=== PATIENT | male | born 1985 | race Caucasian/White ===

== ENCOUNTER 2019-04-02 13:45 | Emergency (ER) | payer SELFPAY ==
[2019-04-02] MEDS ORDERED: Albuterol/Ipratropium 3.0-0.5 MG/3 ML Neb Soln NEB ONE (13:48)
[2019-04-02] MEDS ORDERED: methylPREDNISolone Sodium Succinate 125 MG/2 ML SDV IM ONE (13:48)
[2019-04-02] MEDS ORDERED: methylPREDNISolone Sodium Succinate 125 MG/2 ML SDV IVPUSH ONE (13:54)
--- NOTE | 2019-04-02 15:39 | EDM.PDOC ---
ED HPI GENERAL MEDICAL PROBLEM - General Chief Complaint: Respiratory Problem Stated Complaint: SOB-ASTHMA Time Seen by Provider: 04/02/19 13:48 Source of Information: Reports: Patient, Family, RN Notes Reviewed History Limitations: Reports: Respiratory Distress - History of Present Illness INITIAL COMMENTS - FREE TEXT/NARRATIVE: 33-year-old gentleman presents emergency department a complaint of shortness of breath, he has a known history of asthma moderate persistent, he states over the last 24 hours is gotten progressively worse his rescue inhalers have not provided any relief at home. He denies any fevers or nausea or vomiting is able to speak in 1 and 2 word sentences Upper Back Pain Score (Numeric/FACES): 8 - Related Data Allergies Allergy/AdvReac Type Severity Reaction Status Date / Time No Known Allergies Allergy Verified 04/02/19 14:01 Home Meds: Home Meds Albuterol Sulfate [Albuterol Sulfate HFA] 2 puff INH ASDIRECTED PRN 05/13/13 [ History] Albuterol Sulfate [Proair Hfa] 8.5 gm IH Q3HR PRN #1 hfa.aer.ad 05/13/13 [Rx] Albuterol [Proventil Neb Soln] 0.63 mg NEB Q2H PRN #25 neb 05/13/13 [Rx] Albuterol/Ipratropium [DuoNeb 3-0.5 MG/3 ML] 3 ml NEB QID PRN #20 neb 05/13/13 [ Rx] Albuterol Sulfate [Proair Hfa] 8.5 gm IH Q2H PRN #1 hfa.aer.ad 04/02/19 [Rx] Albuterol/Ipratropium [DuoNeb 3.0-0.5 MG/3 ML] 3 ml .XX Q2H PRN #90 neb [Rx] Past Medical History Respiratory History: Reports: Asthma Musculoskeletal History: Reports: Fracture Other Musculoskeletal History: leg,arm.collar bone, ankle skull fx Neurological History: Reports: Concussion Social & Family History - Tobacco Use Smoking Status *Q: Never Smoker Second Hand Smoke Exposure: No - Caffeine Use Caffeine Use: Reports: Coffee, Soda - Alcohol Use Days Per Week of Alcohol Use: 4 Number of Drinks Per Day: 4 Total Drinks Per Week: 16 - Recreational Drug Use Recreational Drug Use: Yes Recreational Drug Type: Reports: Marijuana/Hashish Recreational Drug Use Frequency: Rarely ED ROS GENERAL - Review of Systems Review Of Systems: See Below Constitutional: Denies: Fever, Chills Respiratory: Reports: Shortness of Breath, Wheezing Cardiovascular: Reports: Dyspnea on Exertion ED EXAM, GENERAL - Physical Exam Exam: See Below Exam Limited By: Respiratory Distress General Appearance: Alert, Moderate Distress Respiratory/Chest: Respiratory Distress, Decreased Breath Sounds, Wheezing Cardiovascular: Tachycardia Course - Vital Signs Last Recorded V/S: Last Vital Signs Temp 97.8 F 04/02/19 13:59 Pulse 90 04/02/19 14:58 Resp 24 H 04/02/19 14:58 BP 130/64 04/02/19 14:58 Pulse Ox 92 L 04/02/19 14:58 - Orders/Labs/Meds Orders: Active Orders 24 hr Category Date Time Status RT Aerosol Therapy [RC] ASDIRECTED Care 04/02/19 13:48 Active Meds: Medications Discontinued Medications Generic Name Dose Route Start Last Admin Trade Name Freq PRN Reason Stop Dose Admin Albuterol/Ipratropium 3 ml 04/02/19 13:48 04/02/19 13:54 Duoneb 3.0-0.5 Mg/3 Ml NEB 04/02/19 13:49 3 ml ONETIME ONE Administration Methylprednisolone Sodium Succinate 125 mg 04/02/19 13:48 Solu-Medrol IM 04/02/19 13:49 ONETIME ONE Methylprednisolone Sodium Succinate 125 mg 04/02/19 13:54 04/02/19 13:56 Solu-Medrol IVPUSH 04/02/19 13:55 125 mg ONETIME ONE Administration Departure - Departure Time of Disposition: 15:56 Disposition: Home, Self-Care 01 Condition: Good Clinical Impression: Exacerbation of asthma Qualifiers: Asthma severity: moderate Asthma persistence: persistent Qualified Code(s): J45.41 - Moderate persistent asthma with (acute) exacerbation - Discharge Information Prescriptions: Albuterol Sulfate [Proair Hfa] 8.5 gm IH Q2H PRN #1 hfa.aer.ad PRN Reason: Dyspnea Albuterol/Ipratropium [DuoNeb 3.0-0.5 MG/3 ML] 3 ml .XX Q2H PRN #90 neb PRN Reason: Dyspnea Instructions: Asthma Attack Prevention, Adult, Asthma, Adult Referrals: PCP,None [Primary Care Provider] - Forms: ED Department Discharge Additional Instructions: Take full course of prednisone, start tomorrow, use your albuterol or pro-air inhaler as needed, please followup with your primary care provider in 3-5 days if not better, please call return to the emergency department with worsening of symptoms. Sepsis Event Note - Evaluation Sepsis Screening Result: No Definite Risk - Focused Exam Vital Signs: Vital Signs Temp Pulse Resp BP Pulse Ox 04/02/19 14:58 90 24 H 130/64 92 L 04/02/19 13:59 97.8 F 128 H 16 142/84 H 96 Date Exam was Performed: 04/02/19 Time Exam was Performed: 15:53 - My Orders Last 24 Hours: My Active Orders 04/02/19 13:48 RT Aerosol Therapy [RC] ASDIRECTED - Assessment/Plan Last 24 Hours: My Active Orders 04/02/19 13:48 RT Aerosol Therapy [RC] ASDIRECTED Plan: Assessment Acuity = acute Site and laterality = moderate persistent asthma exacerbation Etiology = unknown trigger Manifestations = dyspnea now resolved Location of injury = Home Lab values = none Plan Is given a DuoNeb and Solu-Medrol while in the emergency department discharged home with DuoNeb and a pro-air inhaler long prednisone taper per his request 60 mg once a day for 10 days with a taper follow-up primary care in 3 to 5 days if no improvement medications faxed to [facility] This note was dictated using [employer] voice recognition software please call with any questions on syntax or grammar.
== END 2019-04-02 16:08 | disposition home or self-care (01) ==
LOC: JP.ED 13:45
DX: J45.41 Moderate persistent asthma with (acute) exacerbation (principal)
CPT/HCPCS: 94640; 96374; 99284; J2930; J7620-GY

== ENCOUNTER 2019-06-01 03:00 | Emergency (ER) | payer OTHER ==
[2019-06-01] MEDS ORDERED: methylPREDNISolone Sodium Succinate 125 MG/2 ML SDV IVPUSH ONE (03:12)
[2019-06-01] MEDS ORDERED: Albuterol/Ipratropium 3.0-0.5 MG/3 ML Neb Soln NEB ONE (03:12)
--- NOTE | 2019-06-01 03:29 | EDM.PDOC ---
ED HPI GENERAL MEDICAL PROBLEM - General Chief Complaint: Asthma Stated Complaint: HARD TIME BREATHING Time Seen by Provider: 06/01/19 03:10 Source of Information: Reports: Patient History Limitations: Reports: No Limitations - History of Present Illness INITIAL COMMENTS - FREE TEXT/NARRATIVE: 33-year-old male with longstanding significant recurring asthma, comes in with an exacerbation. He has diffuse expiratory wheezes but his sats are 95% and he is in no respiratory distress. Cough is nonproductive, no fever. Onset: Gradual Duration: Day(s): (Worsening for the last several days) Associated Symptoms: Reports: Cough. Denies: Fever/Chills - Related Data Allergies Allergy/AdvReac Type Severity Reaction Status Date / Time No Known Allergies Allergy Verified 06/01/19 03:17 Home Meds: Home Meds Albuterol [Proventil Neb Soln] 0.63 mg NEB Q2H PRN #25 neb 05/13/13 [Rx] Albuterol/Ipratropium [DuoNeb 3-0.5 MG/3 ML] 3 ml NEB QID PRN #20 neb 05/13/13 [ Rx] Albuterol Sulfate [Proair Hfa] 8.5 gm IH ASDIRECTED PRN 06/01/19 [History] Past Medical History Respiratory History: Reports: Asthma Musculoskeletal History: Reports: Fracture Other Musculoskeletal History: leg,arm.collar bone, ankle skull fx Neurological History: Reports: Concussion Social & Family History - Tobacco Use Smoking Status *Q: Never Smoker - Caffeine Use Caffeine Use: Reports: Coffee, Soda ED ROS GENERAL - Review of Systems Review Of Systems: See Below Constitutional: Denies: Fever, Chills Respiratory: Reports: Shortness of Breath, Wheezing, Cough. Denies: Sputum Cardiovascular: Denies: Chest Pain GI/Abdominal: Denies: Nausea, Vomiting Neurological: Denies: Headache ED EXAM, GENERAL - Physical Exam Exam: See Below Exam Limited By: No Limitations General Appearance: Alert, No Apparent Distress, Anxious, Other (Anxious and uncomfortable but not in any acute distress) Head: Atraumatic Respiratory/Chest: No Respiratory Distress, Wheezing (Diffuse expiratory wheezes are heard) Cardiovascular: Regular Rate, Rhythm Neurological: Alert, Oriented Skin Exam: Warm, Dry Course - Vital Signs Last Recorded V/S: Last Vital Signs Temp 98.0 F 06/01/19 03:25 Pulse 101 H 04/15/20 03:25 Resp 24 H 06/01/19 03:25 BP 142/68 H 06/01/19 03:25 Pulse Ox 96 06/01/19 03:25 - Orders/Labs/Meds Orders: Active Orders 24 hr Category Date Time Status RT Aerosol Therapy [RC] ASDIRECTED Care 06/01/19 03:12 Active Meds: Medications Discontinued Medications Generic Name Dose Route Start Last Admin Trade Name Isabel PRN Reason Stop Dose Admin Albuterol/Ipratropium 3 ml 06/01/19 03:12 06/01/19 03:22 Duoneb 3.0-0.5 Mg/3 Ml NEB 06/01/19 03:13 3 ml ONETIME ONE Administration Methylprednisolone Sodium Succinate 125 mg 06/01/19 03:12 06/01/19 03:33 Solu-Medrol IVPUSH 06/01/19 03:13 125 mg ONETIME ONE Administration - Re-Assessments/Exams Free Text/Narrative Re-Assessment/Exam: 06/01/19 03:27 Patient was given a DuoNeb, and IV started and patient was given 125 mg of IV Solu-Medrol. He was also given 60 10 mg doses of prednisone to start tomorrow morning with a dose of 60 mg and taper over 10 days. He also requested a prescription for pro-air HFA which seems to work better than the Ventolin brand. This was provided. He is encouraged to return if worsening despite treatment. Departure - Departure Time of Disposition: 03:54 Disposition: Home, Self-Care 01 Clinical Impression: Asthma with exacerbation Qualifiers: Asthma severity: moderate Asthma persistence: persistent Qualified Code(s): J45.41 - Moderate persistent asthma with (acute) exacerbation - Discharge Information Instructions: Asthma, Adult Referrals: PCP,None [Primary Care Provider] - Forms: ED Department Discharge Care Plan Goals: Take 60 mg of prednisone for the next 2 to 3 days then taper over 10 days. Use inhaler as needed until improved, and return anytime if not improving satisfactorily. Sepsis Event Note - Focused Exam Vital Signs: Vital Signs Temp Pulse Resp BP Pulse Ox 06/01/19 03:25 98.0 F 101 H 24 H 142/68 H 96 06/01/19 03:24 98.0 F 101 H 24 H 142/68 H 96 Date Exam was Performed: 06/01/19 Time Exam was Performed: 03:58 - My Orders Last 24 Hours: My Active Orders 06/01/19 03:12 RT Aerosol Therapy [RC] ASDIRECTED - Assessment/Plan Last 24 Hours: My Active Orders 06/01/19 03:12 RT Aerosol Therapy [RC] ASDIRECTED
== END 2019-06-01 03:55 | disposition home or self-care (01) ==
LOC: JP.ED 03:00
DX: J45.41 Moderate persistent asthma with (acute) exacerbation (principal)
CPT/HCPCS: 94640; 96374; 99284; J2930; J7620-GY

== ENCOUNTER 2019-11-02 20:30 | Emergency (ER) | payer MEDICAID ==
[2019-11-02] MEDS ORDERED: Dexamethasone 4 MG/ML SDV PO ONE (21:10)
--- NOTE | 2019-11-02 21:17 | EDM.PDOC ---
ED HPI GENERAL MEDICAL PROBLEM - General Chief Complaint: Asthma Stated Complaint: Feels like there is something in my throat making it difficult to breathe Time Seen by Provider: 11/02/19 21:03 Source of Information: Reports: Patient History Limitations: Reports: No Limitations - History of Present Illness INITIAL COMMENTS - FREE TEXT/NARRATIVE: 33-year-old male with history of asthma presents with a sensation of something in his throat making it difficult to breathe. It has developed over the past 48 hours. He has noticed it while driving his tractor and while laying in bed. He denies any cough, fever, nausea, vomiting. He takes acid reflux medications and is compliant. He denies any increased heartburn or acid reflux. He denies any wheezing. He reports no sinus congestion or pressure. Denies other symptoms or concerns at this time. Presents to emergency room as he felt the symptoms could be developing asthma and he wanted to get control early. Back Pain Score (Numeric/FACES): 7 - Related Data Allergies Allergy/AdvReac Type Severity Reaction Status Date / Time No Known Allergies Allergy Verified 06/01/19 03:17 Home Meds: Home Meds Albuterol [Proventil Neb Soln] 0.63 mg NEB Q2H PRN #25 neb 05/13/13 [Rx] Albuterol/Ipratropium [DuoNeb 3-0.5 MG/3 ML] 3 ml NEB QID PRN #20 neb 05/13/13 [Rx] Albuterol Sulfate [Proair Hfa] 8.5 gm IH ASDIRECTED PRN 06/01/19 [History] Budesonide [Pulmicort] 1 ampule INH BID 11/02/19 [History] Fluticasone Propion/Salmeterol [Wixela 500-50 Inhub] 1 puff INH BID 11/02/19 [History] Past Medical History Respiratory History: Reports: Asthma Musculoskeletal History: Reports: Fracture Other Musculoskeletal History: leg,arm.collar bone, ankle skull fx Neurological History: Reports: Concussion, Head Trauma Endocrine/Metabolic History: Reports: Obesity/BMI 30+ Social & Family History - Tobacco Use Smoking Status *Q: Never Smoker - Caffeine Use Caffeine Use: Reports: Soda - Recreational Drug Use Recreational Drug Use: No ED ROS GENERAL - Review of Systems Review Of Systems: Comprehensive ROS is negative, except as noted in HPI. ED EXAM, GENERAL - Physical Exam Exam: See Below Exam Limited By: No Limitations General Appearance: Alert, WD/WN, No Apparent Distress Throat/Mouth: Normal Inspection, Dysphagia, Inflammation (Postnasal drainage. Uvula midline. No trismus.), Other Head: Atraumatic, Normocephalic Neck: Normal Inspection, Supple, Non-Tender, Full Range of Motion Respiratory/Chest: No Respiratory Distress, Lungs Clear, Normal Breath Sounds, No Accessory Muscle Use, Chest Non-Tender, Other (No hypoxia.) Cardiovascular: Normal Peripheral Pulses, Regular Rate, Rhythm, No Edema GI/Abdominal: Soft, Non-Tender, No Distention Extremities: Normal Inspection, Normal Range of Motion, Non-Tender, Normal Capillary Refill, No Pedal Edema Neurological: Alert, Oriented, Normal Gait, No Motor/Sensory Deficits Skin Exam: Warm, Dry, Intact Lymphatic: No Adenopathy Course - Vital Signs Last Recorded V/S: Last Vital Signs Temp 96.5 F L 11/02/19 20:48 Pulse 87 11/02/19 20:48 Resp 16 11/02/19 20:48 BP 156/86 H 11/02/19 20:48 Pulse Ox 96 11/02/19 20:48 - Orders/Labs/Meds Orders: Active Orders 24 hr Category Date Time Status dexAMETHasone [Dexamethasone] Med 11/02/19 21:10 Once 10 mg PO ONETIME ONE Departure - Departure Time of Disposition: 21:10 Disposition: Home, Self-Care 01 Condition: Good Clinical Impression: Post-nasal drainage - Discharge Information Instructions: Postnasal Drip Referrals: Reno Oneil MD [Primary Care Provider] - Additional Instructions: 1. Continue use of your reflux medications. 2. Use your rescue inhaler as needed. 3. Consider [id number] decongestant use. 4. Follow-up with your primary care doctor in clinic within 5 to 10 days if not improving. 5. Seek immediate medical attention with any rapidly worsening symptoms or concerns. Sepsis Event Note (ED) - Evaluation Sepsis Screening Result: No Definite Risk - Focused Exam Vital Signs: Vital Signs Temp Pulse Resp BP Pulse Ox 11/02/19 20:48 96.5 F L 87 16 156/86 H 96 11/02/19 20:40 96.5 F L 87 16 156/86 H 96 - My Orders Last 24 Hours: My Active Orders 11/02/19 21:10 dexAMETHasone [Dexamethasone] 10 mg PO ONETIME ONE - Assessment/Plan Last 24 Hours: My Active Orders 11/02/19 21:10 dexAMETHasone [Dexamethasone] 10 mg PO ONETIME ONE Assessment:: 33-year-old male with reported history of asthma endorses 2 days of a sensation in his throat that there is like he has a lot of phlegm there and makes it difficult to breathe. He noticed an episode earlier today while driving his tractor and thought he should get looked at this afternoon as it may be progressing to asthma. He denies any wheezing, fever, cough or other symptoms. He takes acid reflux medications as directed. Clinical evaluation demonstrates signs and symptoms of postnasal drip and associated inflammation which is likely what the patient is experiencing. Clinical examination does not reveal any evidence of airway compromise such as wheezing or hypoxia. There is no evidence of acute asthma exacerbation. Decadron was administered for pharyngeal inflammation to help improve symptoms. Strep throat is not suspected at this time. Advised patient to get adequate hydration. Recommend continued use of his acid reflux medications as directed. No evidence of acute bronchospasm at this time. Advised to follow-up with his primary care doctor in 5 to 10 days if symptoms are not improving and to seek immediate medical attention with any rapidly worsening symptoms or concerns. Plan: 1. Continue to take your medications as directed by your primary care doctor. No new medications at this time. Decadron was administered in the emergency department setting to decrease inflammation observed in your throat. 2. Follow-up with your primary care doctor in 5 to 10 days if symptoms or not improving. 3. Seek immediate medical attention with any rapidly worsening symptoms or concerns.
== END 2019-11-02 21:46 | disposition home or self-care (01) ==
LOC: JP.ED 20:30
DX: R09.82 Postnasal drip (principal); J45.909 Unspecified asthma, uncomplicated; E66.9 Obesity, unspecified; Z68.41 Body mass index [BMI] 40.0-44.9, adult
CPT/HCPCS: 99283; J1100; 99282

== ENCOUNTER 2020-01-19 12:58 | Emergency (ER) | payer MEDICAID ==
[2020-01-19] MEDS ORDERED: Albuterol/Ipratropium 3.0-0.5 MG/3 ML Neb Soln NEB ONE (13:19)
--- NOTE | 2020-01-19 13:27 | EDM.PDOC ---
ED HPI GENERAL MEDICAL PROBLEM - General Chief Complaint: Respiratory Problem Stated Complaint: BREATHING PROBLEMS Time Seen by Provider: 01/19/20 13:15 Source of Information: Reports: Patient, Old Records, RN History Limitations: Reports: No Limitations - History of Present Illness INITIAL COMMENTS - FREE TEXT/NARRATIVE: 34 yo male here with worsening of his asthma over the past couple of days. No fever. Did have Covid about a month ago and has tested negative since then. Ran out of his Duonebs and is requesting one on arrival in the ER. Onset: Gradual Onset Date: 01/16/20 Duration: Day(s):, Getting Worse Location: Reports: Chest Quality: Reports: Other (mild tightness) Severity: Mild Improves with: Reports: Rest Worsens with: Reports: Breathing (deep breathing), Movement (exertion) Context: Reports: Other (Hx of asthma) Associated Symptoms: Reports: Cough, Shortness of Breath. 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 (see below) (usual meds minus his Duonebs only) Back Pain Score (Numeric/FACES): 6 - Related Data Allergies Allergy/AdvReac Type Severity Reaction Status Date / Time No Known Allergies Allergy Verified 01/19/20 13:12 Home Meds: Home Meds Albuterol [Proventil Neb Soln] 0.63 mg NEB Q2H PRN #25 neb 05/13/13 [Rx] Albuterol/Ipratropium [DuoNeb 3-0.5 MG/3 ML] 3 ml NEB QID PRN #20 neb 05/13/13 [Rx] Albuterol Sulfate [Proair Hfa] 8.5 gm IH ASDIRECTED PRN 06/01/19 [History] Budesonide [Pulmicort] 1 ampule INH BID 11/02/19 [History] Albuterol Sulfate [Proair Hfa] 8.5 gm IH Q4H PRN #1 hfa.aer.ad 01/19/20 [Rx] Albuterol/Ipratropium [DuoNeb 3.0-0.5 MG/3 ML] 3 ml IH QID PRN #100 neb 01/19/20 [Rx] Amoxicillin/Clavulanate K [Augmentin 875-125 MG] 1 tab PO BID 12/03/20 [History] Fluticasone/Vilanterol [Breo Ellipta 100-25 MCG Inhalation Kit] 200 each IH DAILY 01/19/20 [History] predniSONE [Prednisone] 20 mg PO BID #15 tablet 01/19/20 [Rx] Past Medical History Respiratory History: Reports: Asthma Musculoskeletal History: Reports: Fracture Other Musculoskeletal History: leg,arm.collar bone, ankle skull fx Neurological History: Reports: Concussion, Head Trauma Endocrine/Metabolic History: Reports: Obesity/BMI 30+ - Infectious Disease History Infectious Disease History: Reports: C-Difficile Social & Family History - Tobacco Use Years of Tobacco use: 0 - Caffeine Use Caffeine Use: Reports: Soda - Recreational Drug Use Recreational Drug Use: No ED ROS GENERAL - Review of Systems Review Of Systems: See Below Constitutional: Reports: No Symptoms HEENT: Reports: No Symptoms Respiratory: Reports: Shortness of Breath, Wheezing, Cough. Denies: Pleuritic Chest Pain, Sputum, Hemoptysis Cardiovascular: Reports: No Symptoms GI/Abdominal: Reports: No Symptoms Skin: Reports: No Symptoms Neurological: Reports: No Symptoms ED EXAM, GENERAL - Physical Exam Exam: See Below Exam Limited By: No Limitations General Appearance: Alert, WD/WN, Mild Distress Eye Exam: Bilateral Eye: Normal Inspection Ears: Normal External Exam, Normal Canal, Hearing Grossly Normal Ear Exam: Bilateral Ear: Auricle Normal, Canal Normal Nose: Normal Inspection, No Blood Throat/Mouth: Normal Inspection, Normal Lips, Normal Oropharynx, Normal Voice, No Airway Compromise Head: Atraumatic, Normocephalic Neck: Normal Inspection Respiratory/Chest: No Respiratory Distress, Chest Non-Tender, Wheezing, Other (mild tachypnea) Cardiovascular: Regular Rate, Rhythm, No Edema Extremities: Normal Inspection Neurological: Alert, Oriented, CN II-XII Intact, Normal Cognition, No Motor/Sensory Deficits Psychiatric: Normal Affect, Normal Mood Skin Exam: Warm, Dry, Intact, Normal Color, No Rash Course - Vital Signs Last Recorded V/S: Last Vital Signs Temp 36.4 C 01/19/20 13:09 Pulse 87 01/19/20 13:09 Resp 20 01/19/20 13:09 BP 109/75 01/19/20 13:09 Pulse Ox 97 01/19/20 13:09 - Orders/Labs/Meds Orders: Active Orders 24 hr Category Date Time Status RT Aerosol Therapy [RC] ASDIRECTED Care 01/19/20 13:19 Active Meds: Medications Discontinued Medications Generic Name Dose Route Start Last Admin Trade Name Freq PRN Reason Stop Dose Admin Albuterol/Ipratropium 3 ml 01/19/20 13:19 01/19/20 13:23 Duoneb 3.0-0.5 Mg/3 Ml NEB 01/19/20 13:20 3 ml ONETIME ONE Administration - Re-Assessments/Exams Free Text/Narrative Re-Assessment/Exam: 01/19/20 13:44 Moving more air, less wheezing after neb. Departure - Departure Time of Disposition: 13:50 Disposition: Home, Self-Care 01 Condition: Fair Clinical Impression: Bronchospasm, acute - Discharge Information *PRESCRIPTION DRUG MONITORING PROGRAM REVIEWED*: Not Applicable *COPY OF PRESCRIPTION DRUG MONITORING REPORT IN PATIENT [place]ONNIE: Not Applicable Prescriptions: Albuterol/Ipratropium [DuoNeb 3.0-0.5 MG/3 ML] 3 ml IH QID PRN #100 neb PRN Reason: Wheezing predniSONE [Prednisone] 20 mg PO BID #15 tablet Albuterol Sulfate [Proair Hfa] 8.5 gm IH Q4H PRN #1 hfa.aer.ad PRN Reason: Wheezing Referrals: PCP,None [Primary Care Provider] - Forms: ED Department Discharge Additional Instructions: Use prednisone as directed and your other medications as before. See your doctor next week as scheduled. Return as needed. Sepsis Event Note (ED) - Evaluation Sepsis Screening Result: No Definite Risk - Focused Exam Vital Signs: Vital Signs Temp Pulse Resp BP Pulse Ox 01/19/20 13:09 36.4 C 87 20 109/75 97 - My Orders Last 24 Hours: My Active Orders 01/19/20 13:19 RT Aerosol Therapy [RC] ASDIRECTED - Assessment/Plan Last 24 Hours: My Active Orders 01/19/20 13:19 RT Aerosol Therapy [RC] ASDIRECTED
== END 2020-01-19 13:55 | disposition home or self-care (01) ==
LOC: JP.ED 12:58
DX: J98.01 Acute bronchospasm (principal); E66.9 Obesity, unspecified; Z68.39 Body mass index [BMI] 39.0-39.9, adult; Z79.899 Other long term (current) drug therapy
CPT/HCPCS: 94640; 99283-25; J7620-GY

== ENCOUNTER 2020-04-13 23:18 | Emergency (ER) | payer MEDICAID ==
[2020-04-13] MEDS ORDERED: Albuterol/Ipratropium 3.0-0.5 MG/3 ML Neb Soln NEB PRN (23:40)
[2020-04-13] MEDS ORDERED: methylPREDNISolone Sodium Succinate 125 MG/2 ML SDV IVPUSH ONE (23:40)
[2020-04-13] MEDS ORDERED: Sodium Chloride 0.9% 10 ML Syringe FLUSH PRN (23:41)
--- NOTE | 2020-04-13 23:47 | EDM.PDOC ---
ED HPI GENERAL MEDICAL PROBLEM - General Chief Complaint: Respiratory Problem Stated Complaint: TROUBLE BREATHING Time Seen by Provider: 04/13/20 23:40 Source of Information: Reports: Patient History Limitations: Reports: No Limitations - History of Present Illness INITIAL COMMENTS - FREE TEXT/NARRATIVE: Phuc is a 34-year-old male presenting to the ED for evaluation of increased shortness of breath and wheezing over the course of the last 2 to 3 days. Patient reports he has had a cough that is productive of clear to white sputum. He has been using his typical asthma medications but despite this his symptoms have been worsening. He reports that it has been sometime since his last course of prednisone. He denies any fever or chills. He does report chest pain from the retrosternal area to the right lateral chest. He has been coughing and may have "pulled a rib". Denies any trauma. - Related Data Allergies Allergy/AdvReac Type Severity Reaction Status Date / Time No Known Allergies Allergy Verified 04/13/20 23:24 Home Meds: Home Meds Albuterol [Proventil Neb Soln] 0.63 mg NEB Q2H PRN #25 neb 05/13/13 [Rx] Albuterol/Ipratropium [DuoNeb 3-0.5 MG/3 ML] 3 ml NEB QID PRN #20 neb 05/13/13 [Rx] Budesonide [Pulmicort] 1 ampule INH BID 11/02/19 [History] Albuterol Sulfate [Proair Hfa] 8.5 gm IH Q4H PRN #1 hfa.aer.ad 01/19/20 [Rx] Fluticasone/Vilanterol [Breo Ellipta 100-25 MCG Inhalation Kit] 200 each IH DAILY 01/19/20 [History] Albuterol/Ipratropium [DuoNeb 3.0-0.5 MG/3 ML] 3 ml .XX Q3HR PRN #90 neb 04/14/20 [Rx] predniSONE [Prednisone] 60 mg PO DAILY 5 Days #15 tablet 04/14/20 [Rx] Past Medical History HEENT History: Reports: Allergic Rhinitis Respiratory History: Reports: Asthma Gastrointestinal History: Reports: GERD Musculoskeletal History: Reports: Fracture Other Musculoskeletal History: leg,arm.collar bone, ankle skull fx Neurological History: Reports: Concussion, Head Trauma Endocrine/Metabolic History: Reports: Obesity/BMI 30+ Oncologic (Cancer) History: Reports: Other (See Below) Other Oncologic History: testicular - Infectious Disease History Infectious Disease History: Reports: Chicken Pox, Novel Coronavirus - Past Surgical History Male Surgical History: Reports: Other (See Below) Other Male Surgeries/Procedures: testicular cancer with radiation seeds Social & Family History - Tobacco Use Tobacco Use Status *Q: Never Tobacco User - Caffeine Use Caffeine Use: Reports: Soda - Recreational Drug Use Recreational Drug Use: Yes Recreational Drug Type: Reports: Marijuana/Hashish Recreational Drug Use Frequency: Daily Recreational Drug Last Use: two days ago ED ROS GENERAL - Review of Systems Review Of Systems: See Below Constitutional: Reports: No Symptoms HEENT: Reports: No Symptoms Respiratory: Reports: Shortness of Breath, Wheezing, Pleuritic Chest Pain Cardiovascular: Reports: Chest Pain Endocrine: Reports: No Symptoms GI/Abdominal: Reports: No Symptoms : Reports: No Symptoms Musculoskeletal: Reports: No Symptoms Skin: Reports: No Symptoms Neurological: Reports: No Symptoms Psychiatric: Reports: No Symptoms Hematologic/Lymphatic: Reports: No Symptoms Immunologic: Reports: No Symptoms ED EXAM, GENERAL - Physical Exam Exam: See Below Exam Limited By: No Limitations General Appearance: Alert, Anxious, Moderate Distress Eye Exam: Bilateral Eye: EOMI, PERRL Nose: Normal Inspection Throat/Mouth: Normal Inspection Head: Atraumatic, Normocephalic Neck: Normal Inspection, Supple, Non-Tender Respiratory/Chest: Respiratory Distress (Mild with tachypnea), Wheezing, Accessory Muscle Use, Retractions Cardiovascular: Normal Peripheral Pulses, Regular Rate, Rhythm, No Murmur Peripheral Pulses: 2+: Radial (L), Radial (R) GI/Abdominal: Normal Bowel Sounds, Soft, Non-Tender Back Exam: Normal Inspection Extremities: Normal Inspection Neurological: Alert, Oriented, Normal Cognition, No Motor/Sensory Deficits Psychiatric: Anxious Skin Exam: Warm, Dry, Intact, Normal Color Lymphatic: No Adenopathy Course - Vital Signs Last Recorded V/S: Last Vital Signs Temp 36.5 C 04/13/20 23:29 Pulse 115 H 04/13/20 23:29 Resp 30 H 04/13/20 23:29 BP 140/83 04/13/20 23:29 Pulse Ox 93 L 04/13/20 23:29 - Orders/Labs/Meds Orders: Active Orders 24 hr Category Date Time Status RT Aerosol Therapy [RC] ASDIRECTED Care 04/13/20 23:40 Active Chest 2V [CR] Stat Exams 04/13/20 23:41 Ordered C-REACTIVE PROTEIN [CHEM] Stat Lab 04/13/20 23:56 Received COMPREHENSIVE METABOLIC PN,CMP [CHEM] Stat Lab 04/13/20 23:56 Received Albuterol/Ipratropium [DuoNeb 3.0-0.5 MG/3 ML] Med 04/13/20 23:40 Active 3 ml NEB Q2H PRN Sodium Chloride 0.9% [Saline Flush] Med 04/13/20 23:41 Active 10 ml FLUSH ASDIRECTED PRN Saline Lock Insert [OM.PC] Routine Oth 04/13/20 23:41 Ordered Medication Orders Albuterol/Ipratropium (Duoneb 3.0-0.5 Mg/3 Ml) 3 ml NEB Q2H PRN PRN Reason: Dyspnea Last Admin: 04/13/20 23:54 Dose: 3 ml Documented by: ELIZABETH Sodium Chloride (Saline Flush) 10 ml FLUSH ASDIRECTED PRN PRN Reason: Keep Vein Open Last Admin: 04/13/20 23:54 Dose: 10 ml Documented by: ELIZABETH Labs: Laboratory Tests 04/13/20 04/13/20 Range/Units 23:56 23:56 WBC 15.2 H (4.5-11.0) K/uL RBC 5.26 (4.30-5.90) M/uL Hgb 14.4 (12.0-15.0) g/dL Hct 43.2 (40.0-54.0) % MCV 82 (80-98) fL MCH 27 (27-31) pg MCHC 33 (32-36) % Plt Count 350 (150-400) K/uL Neut % (Auto) 61 (36-66) % Lymph % (Auto) 26 (24-44) % Meigs % (Auto) 7 H (2-6) % Eos % (Auto) 6 H (2-4) % Baso % (Auto) 0 (0-1) % Lactic Acid 1.4 (0.4-2.0) mmol/L Meds: Medications Generic Name Dose Route Start Last Admin Trade Name Freq PRN Reason Stop Dose Admin Albuterol/Ipratropium 3 ml 04/13/20 23:40 04/13/20 23:54 Duoneb 3.0-0.5 Mg/3 Ml NEB 3 ml Q2H PRN Administration Dyspnea Sodium Chloride 10 ml 04/13/20 23:41 04/13/20 23:54 Saline Flush FLUSH 10 ml ASDIRECTED PRN Administration Keep Vein Open Discontinued Medications Generic Name Dose Route Start Last Admin Trade Name Isabel PRN Reason Stop Dose Admin Methylprednisolone Sodium Succinate 125 mg 04/13/20 23:40 04/13/20 23:54 Solu-Medrol IVPUSH 04/13/20 23:41 125 mg ONETIME ONE Administration - Radiology Interpretation Free Text/Narrative:: I reviewed the two-view chest x-ray. There is no evidence for any acute infiltrates or perihilar adenopathy. No changes in the chest x-ray when compared to the previous done in January 2020. - Re-Assessments/Exams Free Text/Narrative Re-Assessment/Exam: 04/13/20 23:45 Phuc presents with an acute exacerbation of asthma with audible wheezing, accessory muscle use, and tachypnea spite using his home medications. We initiated bronchodilation with a DuoNeb as well as the patient received Solu-Medrol 125 mg IV. Labs were obtained including CBC, CRP, comprehensive metabolic panel, and lactic acid as he prescreens as possible sepsis. A chest x-ray was also obtained to evaluate for possible infection like bronchitis or pneumonia. 04/14/20 00:22 I reviewed the patient's labs including CBC, comprehensive metabolic panel, and lactic acid. The CBC shows a leukocytosis but predominantly has elevation of the monocytes and eosinophils consistent with an acute asthma exacerbation. There is no significant left shift to suggest a bacterial infection. The venous lactic acid is normal at 1.4. There is no suggestion of acute sepsis. The comprehensive metabolic panel shows shows a slightly high anion gap of 16.8 but otherwise is unremarkable. The C-reactive protein is mildly elevated at 1.31. 04/14/20 00:29 overall, it appears that this is an acute exacerbation of asthma. It appears that he had his last exacerbation where he was seen in the ED on 01/21/2020. My plan is to discharge him home with a new prescription for DuoNeb 90 ampoules and prednisone 60 mg daily for 5 days. I have printed prescriptions for both that the patient can fill in the pharmacy in the morning. Unfortunately, it does not appear that DuoNeb's are available in the [facility] med machine anymore to send him out with a smaller quantity for overnight. The patient does still have 1 ampoule at home should he need it after discharge before picking up the new prescription. Indications to return to the ED were discussed. There are no indications that warrant the use of antibiotics at this time. All questions were answered prior to the patient being discharged in satisfactory condition. Departure - Departure Time of Disposition: 00:31 Disposition: Home, Self-Care 01 Condition: Fair Clinical Impression: Acute asthma - Discharge Information *PRESCRIPTION DRUG MONITORING PROGRAM REVIEWED*: Not Applicable *COPY OF PRESCRIPTION DRUG MONITORING REPORT IN PATIENT BONNIE: Not Applicable Prescriptions: Albuterol/Ipratropium [DuoNeb 3.0-0.5 MG/3 ML] 3 ml .XX Q3HR PRN #90 neb PRN Reason: Dyspnea predniSONE [Prednisone] 60 mg PO DAILY 5 Days #15 tablet Instructions: Asthma, Adult, [id number], Asthma Attack Prevention, Adult Referrals: Javier Dooley MD [Primary Care Provider] - Forms: ED Department Discharge Care Plan Goals: My plan is to put you on prednisone 60 mg daily for 5 days. This should help calm down the inflammation occurring in your larger airways that are causing your shortness of breath and wheezing. In addition we will also do a prescription for DuoNebs as he is down to his last ampule. Sepsis Event Note (ED) - Evaluation Sepsis Screening Result: Possible Sepsis Risk - Focused Exam Vital Signs: Vital Signs Temp Pulse Resp BP Pulse Ox 04/13/20 23:29 36.5 C 115 H 30 H 140/83 93 L 04/13/20 23:28 36.5 C 115 H 30 H 140/83 93 L - Problem List & Annotations (1) Acute asthma SNOMED Code(s): 994106312 Code(s): J45.909 - UNSPECIFIED ASTHMA, UNCOMPLICATED Status: Acute Priority: High Current Visit: Yes - Problem List Review Problem List Initiated/Reviewed/Updated: Yes - My Orders Last 24 Hours: My Active Orders 04/13/20 23:40 RT Aerosol Therapy [RC] ASDIRECTED Albuterol/Ipratropium [DuoNeb 3.0-0.5 MG/3 ML] 3 ml NEB Q2H PRN 04/13/20 23:41 Chest 2V [CR] Stat Sodium Chloride 0.9% [Saline Flush] 10 ml FLUSH ASDIRECTED PRN Saline Lock Insert [OM.PC] Routine 04/13/20 23:56 C-REACTIVE PROTEIN [CHEM] Stat COMPREHENSIVE METABOLIC PN,CMP [CHEM] Stat - Assessment/Plan Last 24 Hours: My Active Orders 04/13/20 23:40 RT Aerosol Therapy [RC] ASDIRECTED Albuterol/Ipratropium [DuoNeb 3.0-0.5 MG/3 ML] 3 ml NEB Q2H PRN 04/13/20 23:41 Chest 2V [CR] Stat Sodium Chloride 0.9% [Saline Flush] 10 ml FLUSH ASDIRECTED PRN Saline Lock Insert [OM.PC] Routine 04/13/20 23:56 C-REACTIVE PROTEIN [CHEM] Stat COMPREHENSIVE METABOLIC PN,CMP [CHEM] Stat
--- NOTE | 2020-04-16 09:13 | CR ---
CHEST: 2 view CLINICAL HISTORY:Dyspnea and wheezing COMPARISON:2014 FINDINGS: The heart size, pulmonary vascularity and hilar structures are normal. No infiltrate effusion or pneumothorax is seen. IMPRESSION: No acute cardiopulmonary process.
== END 2020-04-14 00:42 | disposition home or self-care (01) ==
LOC: JP.ED 23:18
DX: J45.909 Unspecified asthma, uncomplicated (principal); R79.82 Elevated C-reactive protein (CRP); E66.9 Obesity, unspecified; Z68.38 Body mass index [BMI] 38.0-38.9, adult; Z79.899 Other long term (current) drug therapy
CPT/HCPCS: 36415; 71046; 80053; 83605; 85025; 86140; 94640; 96374; 99284; 99285; J2930; J7620-GY

== ENCOUNTER 2020-07-27 06:22 | Emergency (ER) | payer MEDICAID ==
--- NOTE | 2020-07-27 07:27 | EDM.PDOC ---
ED HPI GENERAL MEDICAL PROBLEM - General Chief Complaint: ENT Problem Stated Complaint: SWOLLEN TONSILS AND SOB ASTHMA Time Seen by Provider: 07/27/20 07:05 Source of Information: Reports: Patient History Limitations: Reports: No Limitations - History of Present Illness INITIAL COMMENTS - FREE TEXT/NARRATIVE: 34-year-old male with a history of asthma, developed a sore throat over the past 24 to 48 hours. No fevers or chills but he has tender lymphadenopathy and also has developed a runny nose. He thinks they may be unrelated as he has some allergy issues as well. No nausea or vomiting, no exposure to illness he knows of. He was diagnosed with Covid in December. Denies a headache. Onset: Sudden (Symptoms started fairly suddenly within the last 48 hours) Location: Reports: Other (Throat and neck) Worsens with: Reports: Other (Swallowing is difficult) - Related Data Allergies Allergy/AdvReac Type Severity Reaction Status Date / Time No Known Allergies Allergy Verified 07/27/20 06:41 Home Meds: Home Meds Albuterol [Proventil Neb Soln] 0.63 mg NEB Q2H PRN #25 neb 05/13/13 [Rx] Albuterol/Ipratropium [DuoNeb 3-0.5 MG/3 ML] 3 ml NEB QID PRN #20 neb 05/13/13 [Rx] Budesonide [Pulmicort] 1 ampule INH BID 11/02/19 [History] Albuterol Sulfate [Proair Hfa] 8.5 gm IH Q4H PRN #1 hfa.aer.ad 01/19/20 [Rx] Fluticasone/Vilanterol [Breo Ellipta 100-25 MCG Inhalation Kit] 200 each IH DAILY 01/19/20 [History] Albuterol/Ipratropium [DuoNeb 3.0-0.5 MG/3 ML] 3 ml .XX Q3HR PRN #90 neb 04/14/20 [Rx] Past Medical History HEENT History: Reports: Allergic Rhinitis Cardiovascular History: Reports: Angina, Syncope Respiratory History: Reports: Asthma Gastrointestinal History: Reports: GERD Musculoskeletal History: Reports: Fracture Other Musculoskeletal History: leg,arm.collar bone, ankle skull fx Neurological History: Reports: Concussion, Head Trauma Endocrine/Metabolic History: Reports: Obesity/BMI 30+ Oncologic (Cancer) History: Reports: Other (See Below) Other Oncologic History: testicular - Infectious Disease History Infectious Disease History: Reports: Chicken Pox, Novel Coronavirus - Past Surgical History Male Surgical History: Reports: Other (See Below) Other Male Surgeries/Procedures: testicular cancer with radiation seeds Social & Family History - Tobacco Use Tobacco Use Status *Q: Current Every Day Tobacco User Years of Tobacco use: 25 Packs/Tins Daily: 1 - Caffeine Use Caffeine Use: Reports: Soda ED ROS ENT - Review of Systems Review Of Systems: See Below Constitutional: Denies: Fever, Chills HEENT: Reports: Throat Pain. Denies: Ear Pain Respiratory: Reports: Cough (Chronic mild cough from asthma). Denies: Shortness of Breath Cardiovascular: Denies: Chest Pain GI/Abdominal: Denies: Nausea, Vomiting Skin: Denies: Rash Neurological: Reports: No Symptoms. Denies: Headache Psychiatric: Reports: No Symptoms ED EXAM, ENT - Physical Exam Exam: See Below Exam Limited By: No Limitations General Appearance: Alert, No Apparent Distress Mouth/Throat: Pharyngeal Erythema (Pharyngeal erythema). No: Tonsillar Exudates Head: Atraumatic Neck: Other (Minimal but tender bilateral cervical lymphadenopathy) Respiratory/Chest: No Respiratory Distress, Other (Minimal expiratory wheezes especially with forced expiration, bilaterally) Neurological: Alert, Oriented Psychiatric: Normal Affect, Normal Mood Skin: Warm, Dry Course - Vital Signs Last Recorded V/S: Last Vital Signs Temp 98.7 F 07/27/20 06:37 Pulse 107 H 07/27/20 06:37 Resp 23 H 07/27/20 06:37 BP 126/79 07/27/20 06:37 Pulse Ox 99 07/27/20 06:37 - Orders/Labs/Meds Orders: Active Orders 24 hr Category Date Time Status CULTURE STREP A CONFIRMATION [] Stat Lab 07/27/20 06:40 Results STREP SCRN A RAPID W CULT CONF [RM] Stat Lab 07/27/20 06:40 Results - Re-Assessments/Exams Free Text/Narrative Re-Assessment/Exam: 07/27/20 07:26 Rapid strep was obtained and was negative. Explained to the patient that this is likely viral or combination of viral and allergy symptoms. He was given 100 cc of viscous lidocaine to use with used to numb his throat every 2-3 hours, and should recheck on Thursday if not improving satisfactorily. He can return sooner if worsening such as difficulty breathing. Departure - Departure Time of Disposition: 17:34 Disposition: Home, Self-Care 01 Clinical Impression: Viral pharyngitis - Discharge Information Instructions: Pharyngitis Referrals: Javier Dooley MD [Primary Care Provider] - Forms: ED Department Discharge Care Plan Goals: Rest, fluids, ibuprofen will be helpful and use a couple teaspoons of the numbing gel along with juice or liquid antacid for pain control. Recheck in 3 to 4 days if not improving satisfactorily, or return anytime if worsening such as difficulty breathing or other concerns. Sepsis Event Note (ED) - Evaluation Sepsis Screening Result: Possible Sepsis Risk - Focused Exam Vital Signs: Vital Signs Temp Pulse Resp BP Pulse Ox 07/27/20 06:37 98.7 F 107 H 23 H 126/79 99 07/27/20 06:36 98.7 F 107 H 23 H 126/79 99 Attestation - Student - Attestation Statement Attestation Statement: I personally performed or re-performed the physical examination and medical decision making. I have verified all student documentation or findings, including history, physical exam and/or medical decision making. 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
== END 2020-07-27 07:34 | disposition home or self-care (01) ==
LOC: JP.ED 06:22
DX: J02.8 Acute pharyngitis due to other specified organisms (principal); Z72.0 Tobacco use
CPT/HCPCS: 87081; 87880-QW; 99283

== ENCOUNTER 2020-07-31 22:55 | Emergency (ER) | payer MEDICAID ==
--- NOTE | 2020-08-01 00:03 | EDM.PDOC ---
ED HPI GENERAL MEDICAL PROBLEM - General Chief Complaint: General Stated Complaint: LIGHT HEADED / NAUSEA Time Seen by Provider: 07/31/20 23:42 Source of Information: Reports: Patient, Family (S.Yolanda Meza at bedside) History Limitations: Reports: No Limitations - History of Present Illness INITIAL COMMENTS - FREE TEXT/NARRATIVE: chief complaint: light-headed and dizzy This is a 34 year old male present to the ER with his SO Derrick, report was seen in ER on 07/27/2020 for sore throat, strep negative was treated for viral pharyngitis. Reports for the past two days has gotten worse- fever, chills, swollen tonsils, shortness of breath, diarrhea, nausea. not eating today and most of yesterday due to not feeling well. Today had one pop during work and 1/2 bottle of water and 1 pop for supper. just doesn't feel well. reports had Covid 19 in December 2019 not immunized for Covid 19 has asthma has not smoked for 10 years. Onset: Gradual Duration: Day(s): (worse the past few days) Location: Reports: Generalized (light headed, weakness, shortness of breath) Quality: Reports: Other (sore throat very painful) Improves with: Reports: None Worsens with: Reports: None Context: Reports: Other (has been sick for about one week but worse the past two days. ) Associated Symptoms: Reports: Fever/Chills, Loss of Appetite, Malaise, Nausea/Vomiting, Shortness of Breath, Weakness Throat Pain Score (Numeric/FACES): 6 Right Chest Pain Score (Numeric/FACES): 4 - Related Data Allergies Allergy/AdvReac Type Severity Reaction Status Date / Time No Known Allergies Allergy Verified 07/31/20 23:44 Home Meds: Home Meds Albuterol [Proventil Neb Soln] 0.63 mg NEB Q2H PRN #25 neb 05/13/13 [Rx] Albuterol/Ipratropium [DuoNeb 3-0.5 MG/3 ML] 3 ml NEB QID PRN #20 neb 05/13/13 [Rx] Budesonide [Pulmicort] 1 ampule INH BID 11/02/19 [History] Albuterol Sulfate [Proair Hfa] 8.5 gm IH Q4H PRN #1 hfa.aer.ad 01/19/20 [Rx] Fluticasone/Vilanterol [Breo Ellipta 100-25 MCG Inhalation Kit] 200 each IH DAILY 01/19/20 [History] Albuterol/Ipratropium [DuoNeb 3.0-0.5 MG/3 ML] 3 ml .XX Q3HR PRN #90 neb 04/14/20 [Rx] Past Medical History HEENT History: Reports: Allergic Rhinitis Cardiovascular History: Reports: Angina, Syncope Respiratory History: Reports: Asthma Gastrointestinal History: Reports: GERD Musculoskeletal History: Reports: Fracture Other Musculoskeletal History: leg,arm.collar bone, ankle skull fx Neurological History: Reports: Concussion, Head Trauma Endocrine/Metabolic History: Reports: Obesity/BMI 30+ Oncologic (Cancer) History: Reports: Other (See Below) Other Oncologic History: testicular - Infectious Disease History Infectious Disease History: Reports: Chicken Pox, Novel Coronavirus - Past Surgical History Male Surgical History: Reports: Other (See Below) Other Male Surgeries/Procedures: testicular cancer with radiation seeds Social & Family History - Tobacco Use Years of Tobacco use: 26 Packs/Tins Daily: 1 - Caffeine Use Caffeine Use: Reports: Soda - Recreational Drug Use Recreational Drug Use: Yes Recreational Drug Type: Reports: Marijuana/Hashish Recreational Drug Use Frequency: Daily - Living Situation & Occupation Living situation: Reports: with Significant Other Occupation: Employed (lives in [place] with SO) ED ROS GENERAL - Review of Systems Review Of Systems: See Below Constitutional: Reports: Fever, Chills, Malaise, Weakness, Fatigue, Decreased Appetite, Other (neat and well groomed, appears pale and flushed, pleasant and polite man) HEENT: Reports: Throat Pain, Throat Swelling (tonsil), Vertigo Respiratory: Reports: Shortness of Breath, Wheezing, Cough, Sputum (garcia bloody) Cardiovascular: Reports: No Symptoms Endocrine: Reports: Fatigue GI/Abdominal: Reports: Diarrhea, Decreased Appetite, Nausea, Vomiting : Reports: Dysuria Musculoskeletal: Reports: No Symptoms Skin: Reports: Pallor Neurological: Reports: Dizziness Psychiatric: Reports: No Symptoms Hematologic/Lymphatic: Reports: No Symptoms Immunologic: Reports: No Symptoms ED EXAM, GENERAL - Physical Exam Exam: See Below Exam Limited By: No Limitations General Appearance: Alert, WD/WN, Mild Distress, Other (neat and well groomed, pleasant, polite man ) Eye Exam: Bilateral Eye: Normal Inspection, PERRL Ears: Normal External Exam, Normal Canal, Hearing Grossly Normal, Normal TMs Ear Exam: Bilateral Ear: Auricle Normal, Canal Normal, TM normal Nose: Normal Inspection, Normal Mucosa, No Blood Throat/Mouth: Normal Lips, Normal Teeth, Normal Gums, Normal Voice, No Airway Compromise, Inflammation (posterior pharynx) Head: Atraumatic, Normocephalic Neck: Normal Inspection, Supple, Non-Tender, Full Range of Motion Respiratory/Chest: No Respiratory Distress, Decreased Breath Sounds, Rhonchi, Wheezing, Other (sputum garcia white thick) Cardiovascular: Normal Peripheral Pulses, Regular Rate, Rhythm, No Edema, No Murmur Peripheral Pulses: 2+: Radial (L), Radial (R) GI/Abdominal: Normal Bowel Sounds, Soft, Non-Tender, No Organomegaly, No Distention, No Abnormal Bruit, No Mass (Male) Exam: Deferred Rectal (Males) Exam: Deferred Back Exam: Normal Inspection, Full Range of Motion, NT Extremities: Normal Inspection, Normal Range of Motion, Non-Tender, Normal Capillary Refill, No Pedal Edema Neurological: Alert, Oriented, CN II-XII Intact, Normal Cognition, Normal Gait, Normal Reflexes, No Motor/Sensory Deficits Psychiatric: Normal Affect, Normal Mood Skin Exam: Warm, Dry, Intact, Normal Color, No Rash, Pallor Lymphatic: No Adenopathy Course - Vital Signs Last Recorded V/S: Last Vital Signs Temp 98.0 F 07/31/20 23:50 Pulse 103 H 07/31/20 23:50 Resp 21 H 07/31/20 23:50 BP 129/94 H 07/31/20 23:50 Pulse Ox 96 07/31/20 23:50 Orthostatic Blood Pressure [ 139/94 Standing] Orthostatic Blood Pressure [ 137/97 Sitting] Orthostatic Blood Pressure [ 129/94 Supine] - Orders/Labs/Meds Orders: Active Orders 24 hr Category Date Time Status RT Aerosol Therapy [RC] ASDIRECTED Care 08/01/20 00:40 Active Chest 2V [CR] Urgent Exams 08/01/20 00:14 Taken CULTURE BLOOD [BC] Urgent Lab 08/01/20 00:25 Received CULTURE BLOOD [BC] Urgent Lab 08/01/20 00:35 Received Sodium Chloride 0.9% [Normal Saline] 1,000 ml Med 08/01/20 00:15 Active IV ASDIRECTED Blood Culture x2 Reflex Set [OM.PC] Urgent Oth 08/01/20 00:14 Ordered Isolation [COMM] Stat Oth 08/01/20 00:18 Ordered Medication Orders Sodium Chloride (Normal Saline) 1,000 mls @ 999 mls/hr IV ASDIRECTED ROJAS Last Admin: 08/01/20 00:51 Dose: 999 mls/hr Documented by: BERNADINE Labs: Laboratory Tests 08/01/20 08/01/20 08/01/20 Range/Units 00:15 00:25 00:25 WBC 8.5 (4.5-11.0) K/uL RBC 5.62 (4.30-5.90) M/uL Hgb 15.5 H (12.0-15.0) g/dL Hct 46.3 (40.0-54.0) % MCV 82 (80-98) fL MCH 28 (27-31) pg MCHC 34 (32-36) % Plt Count 300 (150-400) K/uL Add Manual Diff Yes Neutrophils % (Manual) 63 (36-66) % Lymphocytes % (Manual) 19 L (24-44) % Monocytes % (Manual) 12 H (2-6) % Eosinophils % (Manual) 6 H (2-4) % Sodium 140 (140-148) mmol/L Potassium 4.0 (3.6-5.2) mmol/L Chloride 104 (100-108) mmol/L Carbon Dioxide 25 (21-32) mmol/L Anion Gap 15.0 H (5.0-14.0) mmol/L BUN 12 (7-18) mg/dL Creatinine 1.3 (0.8-1.3) mg/dL Est Cr Clr Drug Dosing 98.30 mL/min Estimated GFR (MDRD) > 60 (>60) Glucose 93 (74-106) mg/dL Lactic Acid (0.4-2.0) mmol/L Calcium 9.3 (8.5-10.1) mg/dL Total Bilirubin 0.5 (0.2-1.0) mg/dL AST 27 (15-37) U/L ALT 39 (12-78) U/L Alkaline Phosphatase 122 H (46-116) U/L Total Protein 7.9 (6.4-8.2) g/dL Albumin 3.6 (3.4-5.0) g/dL Globulin 4.3 H (2.3-3.5) g/dL Albumin/Globulin Ratio 0.8 L (1.2-2.2) Urine Color Yellow (YELLOW) Urine Appearance Slightly cloudy A (CLEAR) Urine pH 5.5 (5.0-8.0) Ur Specific [place] > 1.030 (1.008-1.030) Urine Protein Negative (NEGATIVE) mg/dL Urine Glucose (UA) Negative (NEGATIVE) mg/dL Urine Ketones Negative (NEGATIVE) mg/dL Urine Occult Blood Trace-intact H (NEGATIVE) Urine Nitrite Negative (NEGATIVE) Urine Bilirubin Negative (NEGATIVE) Urine Urobilinogen 0.2 (0.2-1.0) EU/dL Ur Leukocyte Esterase Negative (NEGATIVE) Urine RBC 0-5 (0-5) Urine WBC Not seen (0-5) Ur Epithelial Cells Few Amorphous Sediment Not seen Urine Bacteria Not seen Urine Mucus Many Urine Other 08/01/20 Range/Units 00:25 WBC (4.5-11.0) K/uL RBC (4.30-5.90) M/uL Hgb (12.0-15.0) g/dL Hct (40.0-54.0) % MCV (80-98) fL MCH (27-31) pg MCHC (32-36) % Plt Count (150-400) K/uL Add Manual Diff Neutrophils % (Manual) (36-66) % Lymphocytes % (Manual) (24-44) % Monocytes % (Manual) (2-6) % Eosinophils % (Manual) (2-4) % Sodium (140-148) mmol/L Potassium (3.6-5.2) mmol/L Chloride (100-108) mmol/L Carbon Dioxide (21-32) mmol/L Anion Gap (5.0-14.0) mmol/L BUN (7-18) mg/dL Creatinine (0.8-1.3) mg/dL Est Cr Clr Drug Dosing mL/min Estimated GFR (MDRD) (>60) Glucose (74-106) mg/dL Lactic Acid 1.1 (0.4-2.0) mmol/L Calcium (8.5-10.1) mg/dL Total Bilirubin (0.2-1.0) mg/dL AST (15-37) U/L ALT (12-78) U/L Alkaline Phosphatase (46-116) U/L Total Protein (6.4-8.2) g/dL Albumin (3.4-5.0) g/dL Globulin (2.3-3.5) g/dL Albumin/Globulin Ratio (1.2-2.2) Urine Color (YELLOW) Urine Appearance (CLEAR) Urine pH (5.0-8.0) Ur Specific [place] (1.008-1.030) Urine Protein (NEGATIVE) mg/dL Urine Glucose (UA) (NEGATIVE) mg/dL Urine Ketones (NEGATIVE) mg/dL Urine Occult Blood (NEGATIVE) Urine Nitrite (NEGATIVE) Urine Bilirubin (NEGATIVE) Urine Urobilinogen (0.2-1.0) EU/dL Ur Leukocyte Esterase (NEGATIVE) Urine RBC (0-5) Urine WBC (0-5) Ur Epithelial Cells Amorphous Sediment Urine Bacteria Urine Mucus Urine Other Meds: Medications Generic Name Dose Route Start Last Admin Trade Name Freq PRN Reason Stop Dose Admin Sodium Chloride 1,000 mls @ 999 mls/hr 08/01/20 00:15 08/01/20 00:51 Normal Saline IV 999 mls/hr ASDIRECTED ROJAS Administration Discontinued Medications Generic Name Dose Route Start Last Admin Trade Name Freq PRN Reason Stop Dose Admin Albuterol/Ipratropium 3 ml 08/01/20 00:40 08/01/20 01:01 Albuterol/Ipratropium 3.0-0.5 Mg/3 Ml Neb Soln NEB 08/01/20 00:41 3 ml ONETIME ONE Administration Ceftriaxone Sodium 1 gm/ 50 mls @ 100 mls/hr 08/01/20 00:16 08/01/20 00:55 Sodium Chloride IV 08/01/20 00:45 100 mls/hr ONETIME ONE Administration Ondansetron HCl 4 mg 08/01/20 00:16 08/01/20 00:52 Ondansetron 4 Mg/2 Ml Sdv IVPUSH 08/01/20 00:17 4 mg ONETIME ONE Administration - Re-Assessments/Exams Free Text/Narrative Re-Assessment/Exam: 08/01/20 00:36 discussed with Phuc and Tlayne will do labs, xray to rule any acute process. most likely had pneumonia or respiratory tract infection -IV Normal Saline 1 liter -IV Rocephin 1 gram -IV Zofran 4 mg -Duoneb x one -Chest x-ray PA/LAT -Labs- CBC, CMP, LACTIC ACID, URINE WITH MICRO, BLOOD CULTURES X 2 Phuc and SO, agrees with plan of care 08/01/20 01:40 chest xray- right patchy infiltrate cbc- 8.5, hgb 15.5, hct 46.3, plt 300 chemistry- na+ 140, K+4.0, cl 104, anion gap 15, lactic acid 1.1 urine specific gravity >1.030, cloudy, trace occult blood -reports feeling better after IV fluids and antibiotic discussed with Phuc and Partner will treat for pneumonia vs bronchitis -Zithromax 500mg today then 250 mg daily x 4 days -Prednisone 20 mg daily x 5 days -Robitussin AC 10 ml every 4 to 6 hours as needed for painful cough -continue inhalers -work slip for 3 days -return to ER if not improved or symptoms agrees with plan of care Departure - Departure Time of Disposition: 01:48 Disposition: Home, Self-Care 01 Condition: Good Clinical Impression: Pneumonia - Discharge Information *PRESCRIPTION DRUG MONITORING PROGRAM REVIEWED*: Not Applicable *COPY OF PRESCRIPTION DRUG MONITORING REPORT IN PATIENT BONNIE: Not Applicable Instructions: Community-Acquired Pneumonia, Adult, [id number] Referrals: Javier Dooley MD [Primary Care Provider] - Forms: ED Department Discharge, ED Return to Work/School Form Care Plan Goals: Pneumonia -Zithromax 500mg today then 250 mg daily x 4 days -Prednisone 20 mg daily x 5 days -Robitussin AC 10 ml every 4 to 6 hours as needed for painful cough -continue inhalers -work slip for 3 days -recheck with Primary Care Clinic in 5 to 7 days -return to ER if not improved or symptoms Sepsis Event Note (ED) - Evaluation Sepsis Screening Result: Possible Sepsis Risk - Focused Exam Vital Signs: Vital Signs Temp Pulse Resp BP Pulse Ox 07/31/20 23:50 98.0 F 103 H 21 H 129/94 H 96 07/31/20 23:16 98.0 F 103 H 21 H 129/94 H 96 - Problem List & Annotations (1) Pneumonia SNOMED Code(s): 956625981 Code(s): J18.9 - PNEUMONIA, UNSPECIFIED ORGANISM Status: Acute Priority: High Current Visit: Yes - Problem List Review Problem List Initiated/Reviewed/Updated: Yes - My Orders Last 24 Hours: My Active Orders 08/01/20 00:14 Chest 2V [CR] Urgent Blood Culture x2 Reflex Set [OM.PC] Urgent 08/01/20 00:15 Sodium Chloride 0.9% [Normal Saline] 1,000 ml IV ASDIRECTED 08/01/20 00:18 Isolation [COMM] Stat 08/01/20 00:25 CULTURE BLOOD [BC] Urgent 08/01/20 00:35 CULTURE BLOOD [BC] Urgent 08/01/20 00:40 RT Aerosol Therapy [RC] ASDIRECTED - Assessment/Plan Last 24 Hours: My Active Orders 08/01/20 00:14 Chest 2V [CR] Urgent Blood Culture x2 Reflex Set [OM.PC] Urgent 08/01/20 00:15 Sodium Chloride 0.9% [Normal Saline] 1,000 ml IV ASDIRECTED 08/01/20 00:18 Isolation [COMM] Stat 08/01/20 00:25 CULTURE BLOOD [BC] Urgent 08/01/20 00:35 CULTURE BLOOD [BC] Urgent 08/01/20 00:40 RT Aerosol Therapy [RC] ASDIRECTED Plan: Pneumonia -Zithromax 500mg today then 250 mg daily x 4 days -Prednisone 20 mg daily x 5 days -Robitussin AC 10 ml every 4 to 6 hours as needed for painful cough -continue inhalers -work slip for 3 days -recheck with Primary Care Clinic in 5 to 7 days -return to ER if not improved or symptoms
[2020-08-01] MEDS ORDERED: Sodium Chloride 0.9% 1,000 ML IV SCH (00:15)
[2020-08-01] MEDS ORDERED: cefTRIAXone 1 GM in Sodium Chloride 0.9% 50 ML IV ONE (00:16)
[2020-08-01] MEDS ORDERED: Ondansetron 4 MG/2 ML SDV IVPUSH ONE (00:16)
[2020-08-01] MEDS ORDERED: Albuterol/Ipratropium 3.0-0.5 MG/3 ML Neb Soln NEB ONE (00:40)
--- NOTE | 2020-08-02 09:31 | CR ---
CHEST: 2 view CLINICAL HISTORY:Wheezing, SOB COMPARISON:2014 FINDINGS: The heart size, pulmonary vascularity and hilar structures are normal. No infiltrate effusion or pneumothorax is seen. IMPRESSION: No acute cardiopulmonary process.
== END 2020-08-01 01:00 | disposition home or self-care (01) ==
LOC: JP.ED 22:55
DX: J18.9 Pneumonia, unspecified organism (principal); J45.909 Unspecified asthma, uncomplicated; E66.9 Obesity, unspecified; Z68.38 Body mass index [BMI] 38.0-38.9, adult; Z79.899 Other long term (current) drug therapy; Z72.0 Tobacco use
CPT/HCPCS: 36415; 71046; 80053; 81001; 83605; 85025; 87040; 94640; 96365; 96375; 99285; J0696; J2405; J7030; J7620-GY

== ENCOUNTER 2020-08-27 10:23 | Emergency (ER) | payer MEDICAID ==
--- NOTE | 2020-08-27 11:08 | EDM.PDOC ---
<Taylor Perez - Last Filed: 08/27/20 15:10> ED HPI GENERAL MEDICAL PROBLEM - General Chief Complaint: Chest Pain Stated Complaint: CHEST PAIN Time Seen by Provider: 08/27/20 10:45 Source of Information: Reports: Patient, Family History Limitations: Reports: No Limitations - History of Present Illness INITIAL COMMENTS - FREE TEXT/NARRATIVE: 34 year old male with a history of asthma presents with complaints of chest pain. Patient reports that he was at work today doing his usual activities when he suddenly became nauseous, had an episode of vomiting, was syncopal, and then started having chest pain 9/10 center chest. He reports associated symptoms of left arm pain and tingling, shortness of breath, and right sided jaw pain. He states that he has had a previous episode of chest pain while [place] state and was prescribed sublingual nitroglycerin tabs. He was given nitroglycerin via ems and this decreased his pain from 9/10 to a 4/10. EMS reports that he had 2 brief episodes of syncope on the way to the ER and one more brief syncopal event shortly after arrival. His vitals are stable at time of arrival. EMS reports normal EKG. He has a family history significant for PA's at a young age so would like to be evaluated for a heart attack today. 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) (nitroglycerin) Chest Pain Score (Numeric/FACES): 4 - Related Data Allergies Allergy/AdvReac Type Severity Reaction Status Date / Time No Known Allergies Allergy Verified 08/27/20 10:38 Home Meds: Home Meds Albuterol [Proventil Neb Soln] 0.63 mg NEB Q2H PRN #25 neb 05/13/13 [Rx] Albuterol/Ipratropium [DuoNeb 3-0.5 MG/3 ML] 3 ml NEB QID PRN #20 neb 05/13/13 [Rx] Budesonide [Pulmicort] 1 ampule INH BID 11/02/19 [History] Albuterol Sulfate [Proair Hfa] 8.5 gm IH Q4H PRN #1 hfa.aer.ad 01/19/20 [Rx] Fluticasone/Vilanterol [Breo Ellipta 100-25 MCG Inhalation Kit] 200 each IH DAILY 01/19/20 [History] Albuterol/Ipratropium [DuoNeb 3.0-0.5 MG/3 ML] 3 ml .XX Q3HR PRN #90 neb 04/14/20 [Rx] Past Medical History HEENT History: Reports: Allergic Rhinitis Cardiovascular History: Reports: Angina, Syncope Respiratory History: Reports: Asthma Gastrointestinal History: Reports: GERD Musculoskeletal History: Reports: Fracture Other Musculoskeletal History: leg,arm.collar bone, ankle skull fx Neurological History: Reports: Concussion, Head Trauma Endocrine/Metabolic History: Reports: Obesity/BMI 30+ Oncologic (Cancer) History: Reports: Other (See Below) Other Oncologic History: testicular - Infectious Disease History Infectious Disease History: Reports: Chicken Pox, Novel Coronavirus - Past Surgical History Male Surgical History: Reports: Other (See Below) Other Male Surgeries/Procedures: testicular cancer with radiation seeds Social & Family History - Tobacco Use Tobacco Use Status *Q: Never Tobacco User - Caffeine Use Caffeine Use: Reports: None - Recreational Drug Use Recreational Drug Use: Yes Recreational Drug Type: Reports: Marijuana/Hashish - Living Situation & Occupation Living situation: Reports: with Significant Other Occupation: Employed (lives in [place] with SO) ED ROS GENERAL - Review of Systems Review Of Systems: See Below Constitutional: Denies: Fever, Chills HEENT: Reports: No Symptoms Respiratory: Reports: Shortness of Breath (when having severe chest pain- improves as chest pain is decreasing) Cardiovascular: Reports: Chest Pain, Syncope. Denies: Blood Pressure Problem, Edema, Palpitations Endocrine: Reports: No Symptoms GI/Abdominal: Reports: Vomiting. Denies: Abdominal Pain : Reports: No Symptoms Musculoskeletal: Reports: Neck Pain, Arm Pain, Other (left arm pain with tingling and right sided jaw pain) Skin: Reports: No Symptoms. Denies: Rash Neurological: Reports: No Symptoms, Numbness, Syncope. Denies: Confusion, Headache, Trouble Speaking Psychiatric: Reports: No Symptoms Hematologic/Lymphatic: Reports: No Symptoms Immunologic: Reports: No Symptoms ED EXAM, GENERAL - Physical Exam Exam: See Below Free Text/Narrative:: Phuc arrives on EMS cot alert and oriented, skin is warm and dry, and respirations are regular and non labored. He does not appear diaphoretic. Lung sounds are positive for wheezing in RUL and RLL today but he reports "that is normal" due to his asthma. No edema to lower extremities noted. He does not appear uncomfortable or in distress. Exam Limited By: No Limitations General Appearance: Alert, WD/WN, No Apparent Distress Nose: Normal Inspection, Normal Mucosa Throat/Mouth: Normal Lips, Normal Voice Head: Atraumatic Neck: Normal Inspection, Full Range of Motion Respiratory/Chest: No Respiratory Distress, Chest Non-Tender, Wheezing. No: No Accessory Muscle Use, Respiratory Distress Cardiovascular: Normal Peripheral Pulses, Regular Rate, Rhythm, No Edema GI/Abdominal: Soft, Non-Tender. No: Guarding (Male) Exam: Deferred Rectal (Males) Exam: Deferred Back Exam: Normal Inspection, Full Range of Motion Extremities: Normal Inspection, No Pedal Edema Neurological: Alert, Oriented, Normal Cognition. No: Confused, Memory Loss Recent Events Psychiatric: Normal Affect, Normal Mood Skin Exam: Warm, Dry, Intact. No: Rash Lymphatic: No Adenopathy #1 Interpretation Rhythm: NSR Rate (Beats/Min): 77 P-Wave: Present QRS: Normal ST-T: Normal Course - Vital Signs Text/Narrative:: CBC, CMP, Troponin, chest xray, and EKG ordered. GI cocktail given for lingering chest pain despite nitro. Will plan for serial troponins. Patient agrees with this plan of care. Departure - Departure Time of Disposition: 14:25 Disposition: Home, Self-Care 01 Clinical Impression: Atypical chest pain Instructions: Nonspecific Chest Pain, Adult, [id number] Referrals: PCP,None [Primary Care Provider] - Forms: ED Department Discharge Care Plan Goals: Take 20 to 40 mg of Prilosec daily, increase diet and activity as tolerated, and recheck with your primary provider in the next 1 to 2 weeks to discuss a stress test or further evaluation. Return to the emergency room at any time if symptoms recur and are persistent. Sepsis Event Note (ED) - Evaluation Sepsis Screening Result: No Definite Risk <Robi Li - Last Filed: 08/28/20 09:37> Course - Vital Signs Last Recorded V/S: Last Vital Signs Temp 97.1 F 08/27/20 10:36 Pulse 91 08/27/20 12:50 Resp 12 08/27/20 12:50 BP 121/70 08/27/20 12:50 Pulse Ox 96 08/27/20 12:50 - Orders/Labs/Meds Orders: Active Orders 24 hr Category Date Time Status EKG 12 Lead [EK] Routine Ther 08/27/20 11:11 Ordered Labs: Laboratory Tests 08/27/20 08/27/20 08/27/20 Range/Units 10:45 10:45 13:30 WBC 13.1 H (4.5-11.0) K/uL RBC 4.98 (4.30-5.90) M/uL Hgb 13.9 (12.0-15.0) g/dL Hct 42.1 (40.0-54.0) % MCV 85 (80-98) fL MCH 28 (27-31) pg MCHC 33 (32-36) % Plt Count 319 (150-400) K/uL Neut % (Auto) 66.8 H (36-66) % Lymph % (Auto) 20.3 L (24-44) % [place] % (Auto) 6.0 (2-6) % Eos % (Auto) 6.7 H (2-4) % Baso % (Auto) 0.2 (0-1) % Sodium 142 (140-148) mmol/L Potassium 3.9 (3.6-5.2) mmol/L Chloride 105 (100-108) mmol/L Carbon Dioxide 24 (21-32) mmol/L Anion Gap 13.1 (5.0-14.0) mmol/L BUN 10 (7-18) mg/dL Creatinine 1.2 (0.8-1.3) mg/dL Est Cr Clr Drug Dosing 103.67 mL/min Estimated GFR (MDRD) > 60 (>60) Glucose 89 (74-106) mg/dL Calcium 9.4 (8.5-10.1) mg/dL Total Bilirubin 0.4 (0.2-1.0) mg/dL AST 14 L (15-37) U/L ALT 26 (12-78) U/L Alkaline Phosphatase 125 H (46-116) U/L Troponin I < 0.017 < 0.017 (0.000-0.056) ng/mL Total Protein 7.3 (6.4-8.2) g/dL Albumin 3.5 (3.4-5.0) g/dL Globulin 3.8 H (2.3-3.5) g/dL Albumin/Globulin Ratio 0.9 L (1.2-2.2) Meds: Medications Discontinued Medications Generic Name Dose Route Start Last Admin Trade Name Freq PRN Reason Stop Dose Admin Al Hydroxide/Mg Hydroxide 15 0 ml 08/27/20 11:11 08/27/20 11:39 ml/ Lidocaine HCl 15 ml PO 08/27/20 11:12 Not Given ONETIME ONE - Re-Assessments/Exams Free Text/Narrative Re-Assessment/Exam: 08/27/20 14:12 Repeat troponin is 0, patient was advised to take 20 to 40 mg of Prilosec daily and discuss a stress test with his primary care provider in the near future. GI cocktail not given as pain was gone by the time it was prepared. Attestation - Student - Attestation Statement Attestation Statement: I personally performed or re-performed the physical examination and medical decision making. I have verified all student documentation or findings, including history, physical exam and/or medical decision making.
[2020-08-27] MEDS ORDERED: Alum Hydrox/Mag Hydrox/Simeth 15 ML, Lidocaine 2% 15 ML PO ONE ×2 (11:11)
--- NOTE | 2020-08-27 12:30 | CR ---
CHEST: 2 view CLINICAL HISTORY:Chest pain COMPARISON:July 2020 FINDINGS: The heart size, pulmonary vascularity and hilar structures are normal. No infiltrate effusion or pneumothorax is seen. IMPRESSION: No acute cardiopulmonary process.
== END 2020-08-27 14:25 | disposition home or self-care (01) ==
LOC: JP.ED 10:23
DX: R07.89 Other chest pain (principal); E66.9 Obesity, unspecified; Z68.39 Body mass index [BMI] 39.0-39.9, adult; Z86.16 Personal history of COVID-19
CPT/HCPCS: 36415; 71046; 71046-26; 80053; 84484; 85025; 93005; 99285-25

== ENCOUNTER 2020-09-11 14:44 | Inpatient (IN) | payer MEDICAID ==
[2020-09-11] MEDS ORDERED: Ketorolac 30 MG/ML SDV IVPUSH ONE (16:06)
--- NOTE | 2020-09-11 16:14 | EDM.PDOC ---
<Taylor Perez - Last Filed: 09/11/20 18:24> ED HPI GENERAL MEDICAL PROBLEM - General Chief Complaint: ENT Problem Stated Complaint: SWOLLEN JAW Time Seen by Provider: 09/11/20 16:00 Source of Information: Reports: Patient, Family History Limitations: Reports: No Limitations - History of Present Illness INITIAL COMMENTS - FREE TEXT/NARRATIVE: 34 year old male presents with girlfriend due to right facial swelling over parotid gland that started one week ago. Swelling extends to right ear and right neck. Reports that he was seen in [facility] ER, had a facial CT that shows some infections vs inflammatory myositis and parotitis and was given one dose of IV amoxicillin and then sent home on oral Augmentin and norco two days ago. Reports that he spent the entire day yesterday in bed vomiting, and having fevers. He has not been able to keep any of his antibiotic or pain medication down. Patient is making little urine and feels weak. Onset: Gradual Onset Date: 09/04/20 Duration: Week(s):, Waxing/Waning Location: Reports: Head, Face, Neck Quality: Reports: Ache, Throbbing Severity: Severe Improves with: Reports: None Worsens with: Reports: None Context: Reports: Other (symptoms started 1 week ago. ) Associated Symptoms: Reports: Diaphoresis, Fever/Chills, Nausea/Vomiting - Related Data Allergies Allergy/AdvReac Type Severity Reaction Status Date / Time No Known Allergies Allergy Verified 09/11/20 15:18 Home Meds: Home Meds Albuterol [Proventil Neb Soln] 0.63 mg NEB Q2H PRN #25 neb 05/13/13 [Rx] Albuterol/Ipratropium [DuoNeb 3-0.5 MG/3 ML] 3 ml NEB QID PRN #20 neb 05/13/13 [Rx] Budesonide [Pulmicort] 1 ampule INH BID 11/02/19 [History] Albuterol Sulfate [Proair Hfa] 8.5 gm IH Q4H PRN #1 hfa.aer.ad 01/19/20 [Rx] Fluticasone/Vilanterol [Breo Ellipta 100-25 MCG Inhalation Kit] 200 each IH DAILY 01/19/20 [History] Amoxicillin/Clavulanate K [Augmentin 875-125 MG] 1 tab PO BID 09/11/20 [History] Hydrocodone/Acetaminophen [Hydrocodon-Acetaminophen 5-300] 1 tab PO Q6H PRN 09/11/20 [History] predniSONE [Prednisone] 20 mg PO 09/11/20 [History] Past Medical History HEENT History: Reports: Allergic Rhinitis Cardiovascular History: Reports: Angina, Syncope Respiratory History: Reports: Asthma Gastrointestinal History: Reports: GERD Musculoskeletal History: Reports: Fracture Other Musculoskeletal History: leg,arm.collar bone, ankle skull fx Neurological History: Reports: Concussion, Head Trauma Endocrine/Metabolic History: Reports: Obesity/BMI 30+ Oncologic (Cancer) History: Reports: Other (See Below) Other Oncologic History: testicular - Infectious Disease History Infectious Disease History: Reports: Chicken Pox, Novel Coronavirus - Past Surgical History Male Surgical History: Reports: Other (See Below) Other Male Surgeries/Procedures: testicular cancer with radiation seeds Social & Family History - Caffeine Use Caffeine Use: Reports: None - Living Situation & Occupation Living situation: Reports: with Significant Other Occupation: Employed (lives in [place] with SO) ED ROS ENT - Review of Systems Review Of Systems: See Below Constitutional: Reports: Fever, Chills, Malaise, Weakness, Fatigue, Decreased Appetite HEENT: Reports: Ear Pain, Throat Pain, Other (right sided facial swelling over parotid gland, extensive) Respiratory: Reports: No Symptoms. Denies: Shortness of Breath, Wheezing, Cough, Sputum Cardiovascular: Reports: No Symptoms. Denies: Chest Pain, Edema, Palpitations, Syncope Endocrine: Reports: No Symptoms GI/Abdominal: Reports: Decreased Appetite, Difficulty Swallowing, Nausea, Vomiting. Denies: Abdominal Pain, Diarrhea : Reports: No Symptoms. Denies: Flank Pain, Hematuria Musculoskeletal: Reports: Neck Pain Skin: Reports: No Symptoms Neurological: Reports: No Symptoms. Denies: Confusion, Dizziness, Headache, Numbness Psychiatric: Reports: No Symptoms Hematologic/Lymphatic: Reports: No Symptoms Immunologic: Reports: No Symptoms ED EXAM, ENT - Physical Exam Exam: See Below Text/Narrative:: Patient is resting on cart in position. He appears uncomfortable. Significant swelling to right side of face over his parotid gland, extending to right lower jaw/ upper neck and right ear. He is very sensitive to palpation. He is unable to open his mouth wide enough to allow for good assessment of his teeth, oral mucous membranes. Right ear canal is narrowed due to swelling and cerumen is blocking view of TM and surrounding tissue. His abdomen is non tender and nondistended. No rash, redness, or other injuries noted. Respirations are regular and non labored. skin is warm and dry. He is alert and oriented. Exam Limited By: No Limitations General Appearance: Alert, WD/WN, Mild Distress Ears: Hearing Loss, TM Obscured by Cerumen, Cerumen Impaction, Other (right facial swelling is causing narrowing of ear canal, cerumen is blocking view of TM and surrounding area) Nose: Normal Inspection, No Blood Mouth/Throat: Normal Inspection, Other (facial inflammation causing significant pain- patient is unable to open mouth wide enough for inspection ) Head: Atraumatic Neck: Tender Lateral (right ) Respiratory/Chest: No Respiratory Distress, Lungs Clear, Normal Breath Sounds, No Accessory Muscle Use, Chest Non-Tender. No: Respiratory Distress, Wheezing, Splinting Cardiovascular: Normal Peripheral Pulses, Regular Rate, Rhythm, No Edema. No: Tachycardia GI/Abdominal: Soft, Non-Tender. No: Distended, Rigid (Male) Exam: Deferred Rectal (Males) Exam: Deferred Back: Normal Inspection, Full Range of Motion Extremities: Normal Inspection, Normal Range of Motion, Non-Tender, No Pedal Edema, Normal Capillary Refill Neurological: Alert, Oriented, Normal Cognition, Normal Gait, Normal Reflexes, No Motor/Sensory Deficits Psychiatric: Normal Affect, Normal Mood Skin: Warm, Dry, Intact Lymphatic: No Adenopathy Course - Vital Signs Text/Narrative:: CBC, CMP, CRP,NS bolus, and IV Toradol ordered. Patient in agreement with this plan of care at this time. - Re-Assessments/Exams Free Text/Narrative Re-Assessment/Exam: 09/11/20 16:35 Discussed with ENT, Patient will be admitted with IV clindamycin and steroid, and re CT'd with IV contrast if not improving in a day or two. Patient agrees with this plan. Departure - Departure Time of Disposition: 18:08 Disposition: Admitted As Inpatient 66 Condition: Good Clinical Impression: Parotid duct obstruction, Acute parotitis - Discharge Information Sepsis Event Note (ED) - Evaluation Sepsis Screening Result: No Definite Risk <Robi Li - Last Filed: 09/11/20 18:46> ED HPI GENERAL MEDICAL PROBLEM right face Pain Score (Numeric/FACES): 0 Course - Vital Signs Last Recorded V/S: Last Vital Signs Temp 97.1 F 09/11/20 18:20 Pulse 68 09/11/20 18:20 Resp 12 09/11/20 18:20 BP 105/49 L 09/11/20 18:20 Pulse Ox 95 09/11/20 18:20 - Orders/Labs/Meds Orders: Active Orders 24 hr Category Date Time Status Clindamycin Phosphate [Cleocin] 900 mg Med 09/11/20 17:15 Active Sodium Chloride 0.9% [Normal Saline] 100 ml IV Q8H Sodium Chloride 0.9% [Normal Saline] 1,000 ml Med 09/11/20 16:15 Active IV ASDIRECTED Saline Lock Insert [OM.PC] Routine Oth 09/11/20 16:06 Ordered Medication Orders Acetaminophen (Acetaminophen 325 Mg Tab) 650 mg PO Q4H PRN PRN Reason: Pain (Mild 1-3)/fever Albuterol (Albuterol 0.021% 0.63 Mg/3 Ml Neb Soln) 0.63 mg NEB Q2H PRN PRN Reason: Wheezing Albuterol/Ipratropium (Albuterol/Ipratropium 3.0-0.5 Mg/3 Ml Neb Soln) 3 ml NEB QID PRN PRN Reason: Wheezing Budesonide (Budesonide 0.5 Mg/2 Ml Neb Susp) 0.5 mg INH BIDRT ROJAS Hydromorphone HCl (Hydromorphone 1 Mg/Ml Syringe) 1 mg IVPUSH Q2H PRN PRN Reason: Pain Sodium Chloride (Normal Saline) 1,000 mls @ 999 mls/hr IV ASDIRECTED [facility] Last Admin: 09/11/20 18:07 Dose: 999 mls/hr Documented by: SEAN Clindamycin Phosphate 900 mg/ (Sodium Chloride) 106 mls @ 200 mls/hr IV Q8H [facility] Last Admin: 09/11/20 18:17 Dose: 200 mls/hr Documented by: OLIVE Sodium Chloride (Normal Saline) 1,000 mls @ 125 mls/hr IV ASDIRECTED [facility] Last Admin: 09/11/20 17:58 Dose: 125 mls/hr Documented by: ROSITA Ketorolac Tromethamine (Ketorolac 30 Mg/Ml Sdv) 30 mg IVPUSH Q6H PRN PRN Reason: Pain (moderate 4-6) Stop: 09/16/20 17:07 Lactobacillus Rhamnosus (Lactobacillus Rhamnosus Gg (Probiotic) Cap) 1 cap PO BID ROJAS Lorazepam (Lorazepam 2 Mg/Ml Sdv) 0.5 mg IVPUSH Q4H PRN PRN Reason: Nausea/Vomiting Magnesium Hydroxide (Magnesium Hydroxide 400 Mg/5 Ml Susp 30 Ml Cup) 30 ml PO Q12H PRN PRN Reason: Constipation Methylprednisolone Sodium Succinate (Methylprednisolone Sodium Succinate 125 Mg/2 Ml Sdv) 62.5 mg IVPUSH Q8H ROJAS Mometasone Furoate/Formoterol Fumar (Formoterol/Mometasone 200-5 Mcg 8.8 Gm Inhaler) 2 puff IH BID ROJAS Ondansetron HCl (Ondansetron 4 Mg/2 Ml Sdv) 4 mg IV Q6H PRN PRN Reason: Nausea/Vomiting Ondansetron HCl (Ondansetron 4 Mg Tab.Dis) 4 mg PO Q6H PRN PRN Reason: Nausea able to take PO Oxycodone HCl (Oxycodone 5 Mg Tab) 5 - 10 mg PO Q4H PRN PRN Reason: Pain Senna/Docusate Sodium (Docusate Sodium/Sennosides 50-8.6 Mg Tab) 1 tab PO BID P RN PRN Reason: Constipation Labs: Laboratory Tests 09/11/20 09/11/20 09/11/20 Range/Units 16:20 16:20 16:20 WBC 19.4 H (4.5-11.0) K/uL RBC 5.12 (4.30-5.90) M/uL Hgb 14.4 (12.0-15.0) g/dL Hct 43.1 (40.0-54.0) % MCV 84 (80-98) fL MCH 28 (27-31) pg MCHC 33 (32-36) % Plt Count 285 (150-400) K/uL Neut % (Auto) 76.6 H (36-66) % Lymph % (Auto) 11.8 L (24-44) % [place] % (Auto) 8.5 H (2-6) % Eos % (Auto) 2.9 (2-4) % Baso % (Auto) 0.2 (0-1) % Sodium 137 L (140-148) mmol/L Potassium 4.2 (3.6-5.2) mmol/L Chloride 101 (100-108) mmol/L Carbon Dioxide 27 (21-32) mmol/L Anion Gap 13.2 (5.0-14.0) mmol/L BUN 11 (7-18) mg/dL Creatinine 1.0 (0.8-1.3) mg/dL Est Cr Clr Drug Dosing 127.79 mL/min Estimated GFR (MDRD) > 60 (>60) Glucose 84 (74-106) mg/dL Calcium 9.2 (8.5-10.1) mg/dL Total Bilirubin 0.5 (0.2-1.0) mg/dL AST 12 L (15-37) U/L ALT 19 (12-78) U/L Alkaline Phosphatase 121 H (46-116) U/L C-Reactive Protein 18.72 H (0.0-0.3) mg/dL Total Protein 7.0 (6.4-8.2) g/dL Albumin 3.1 L (3.4-5.0) g/dL Globulin 3.9 H (2.3-3.5) g/dL Albumin/Globulin Ratio 0.8 L (1.2-2.2) Meds: Medications Generic Name Dose Route Start Last Admin Trade Name Freq PRN Reason Stop Dose Admin Acetaminophen 650 mg 09/11/20 17:42 Acetaminophen 325 Mg Tab PO Q4H PRN Pain (Mild 1-3)/fever Albuterol 0.63 mg 09/11/20 17:42 Albuterol 0.021% 0.63 Mg/3 Ml Neb Soln NEB Q2H PRN Wheezing Albuterol/Ipratropium 3 ml 09/11/20 17:42 Albuterol/Ipratropium 3.0-0.5 Mg/3 Ml Neb Soln NEB QID PRN Wheezing Budesonide 0.5 mg 09/11/20 21:00 Budesonide 0.5 Mg/2 Ml Neb Susp INH BIDRT ROJAS Hydromorphone HCl 1 mg 09/11/20 17:42 Hydromorphone 1 Mg/Ml Syringe IVPUSH Q2H PRN Pain Sodium Chloride 1,000 mls @ 999 mls/hr 09/11/20 16:15 09/11/20 18:07 Normal Saline IV 999 mls/hr ASDIRECTED ROJAS Administration Clindamycin Phosphate 900 mg/ 106 mls @ 200 mls/hr 09/11/20 17:15 09/11/20 18:17 Sodium Chloride IV 200 mls/hr Q8H ROJAS Administration Sodium Chloride 1,000 mls @ 125 mls/hr 09/11/20 17:42 09/11/20 17:58 Normal Saline IV 125 mls/hr ASDIRECTED ROJAS Administration Ketorolac Tromethamine 30 mg 09/11/20 22:07 Ketorolac 30 Mg/Ml Sdv IVPUSH 09/16/20 17:07 Q6H PRN Pain (moderate 4-6) Lactobacillus Rhamnosus 1 cap 09/11/20 21:00 Lactobacillus Rhamnosus Gg (Probiotic) Cap PO BID ROJAS Lorazepam 0.5 mg 09/11/20 17:42 Lorazepam 2 Mg/Ml Sdv IVPUSH Q4H PRN Nausea/Vomiting Magnesium Hydroxide 30 ml 09/11/20 17:42 Magnesium Hydroxide 400 Mg/5 Ml Susp 30 Ml Cup PO Q12H PRN Constipation Methylprednisolone Sodium Succinate 62.5 mg 09/12/20 02:00 Methylprednisolone Sodium Succinate 125 Mg/2 Ml Sdv IVPUSH Q8H [facility] Mometasone Furoate/Formoterol Fumar 2 puff 09/12/20 09:00 Formoterol/Mometasone 200-5 Mcg 8.8 Gm Inhaler IH BID [facility] Ondansetron HCl 4 mg 09/11/20 17:42 Ondansetron 4 Mg/2 Ml Sdv IV Q6H PRN Nausea/Vomiting Ondansetron HCl 4 mg 09/11/20 17:42 Ondansetron 4 Mg Tab.Dis PO Q6H PRN Nausea able to take PO Oxycodone HCl 5 - 10 mg 09/11/20 17:42 Oxycodone 5 Mg Tab PO Q4H PRN Pain Senna/Docusate Sodium 1 tab 09/11/20 17:42 Docusate Sodium/Sennosides 50-8.6 Mg Tab PO BID PRN Constipation Discontinued Medications Generic Name Dose Route Start Last Admin Trade Name Freq PRN Reason Stop Dose Admin Hydromorphone HCl 2 mg 09/11/20 17:28 Hydromorphone 1 Mg/Ml Syringe IM 09/11/20 17:29 ONETIME ONE Hydromorphone HCl 1 mg 09/11/20 17:44 09/11/20 17:47 Hydromorphone 1 Mg/Ml Syringe IVPUSH 09/11/20 17:45 1 mg ONETIME ONE Administration Ketorolac Tromethamine 30 mg 09/11/20 16:06 09/11/20 17:51 Ketorolac 30 Mg/Ml Sdv IVPUSH 09/11/20 16:07 30 mg ONETIME ONE Administration Methylprednisolone Sodium Succinate 125 mg 09/11/20 17:42 Methylprednisolone Sodium Succinate 125 Mg/2 Ml Sdv IVPUSH 09/11/20 17:43 ONETIME ONE - Re-Assessments/Exams Free Text/Narrative Re-Assessment/Exam: 09/11/20 18:45 CRP is markedly elevated, white count is elevated as well. Patient responded reasonably well to some IV Dilaudid pain control. Extended chemistry profile was normal. White count is 19,400. Sepsis Event Note (ED) - Focused Exam Vital Signs: Vital Signs Temp Pulse Resp BP Pulse Ox 09/11/20 15:21 97.5 F 92 16 135/91 H 98 09/11/20 15:08 97.5 F 92 16 135/91 H 98 Attestation - Student - Attestation Statement Attestation Statement: I personally performed or re-performed the physical examination and medical decision making. I have verified all student documentation or findings, including history, physical exam and/or medical decision making.
[2020-09-11] MEDS ORDERED: Sodium Chloride 0.9% 1,000 ML IV SCH (16:15)
--- NOTE | 2020-09-11 17:09 | PCM.HP.2 ---
H&P History of Present Illness - General Date of Service: 09/11/20 Admit Problem/Dx: Admission Diagnosis/Problem Admission Diagnosis/Problem Sialoadenitis of submandibular gland Source of Information: Patient, Provider History Limitations: Reports: No Limitations - History of Present Illness Initial Comments - Free Text/Narative: CC: my face hurts HPI: Phuc presents to the emergency room today with worsening right-sided facial pain. He describes severe aching pain throughout the right side of his face. Pain is worse anytime he tries to open his mouth. Pain has steadily been getting worse over the past for 5 days when symptoms initially began. He has been alternating ice and heat with only minimal relief from the ice. He did try to take some pain pills but was unable to keep these down. He was seen in the clinic 5 days ago and diagnosed with TMJ. Pain worsened over the next couple of days and he was seen in a different emergency room. He was prescribed antibiotics and pain pills but it is not quite clear what their diagnosis was. He has gotten worse since that time with increasing pain and swelling. He has not been able to take antibiotics the past 24 hours because he vomits up anything he tries to drink or eat. He has had some subjective fevers and did measure a temperature greater than 100 at the emergency room just shy of 48 hours ago. He does not have abdominal pain or diarrhea. He has no history of kidney stones or salivary gland stones. Work-up in the emergency room revealed white blood cell count of 19,000 and a CRP of 20. Patient has significant swelling and is unable to open his mouth. He is not able to keep any medications down. He will be admitted for management of sialoadenitis that is failing outpatient management. - Related Data Allergies/Adverse Reactions: Allergies Allergy/AdvReac Type Severity Reaction Status Date / Time No Known Allergies Allergy Verified 09/11/20 15:18 Home Medications: Home Meds Albuterol [Proventil Neb Soln] 0.63 mg NEB Q2H PRN #25 neb 05/13/13 [Rx] Albuterol/Ipratropium [DuoNeb 3-0.5 MG/3 ML] 3 ml NEB QID PRN #20 neb 05/13/13 [Rx] Budesonide [Pulmicort] 1 ampule INH BID 11/02/19 [History] Albuterol Sulfate [Proair Hfa] 8.5 gm IH Q4H PRN #1 hfa.aer.ad 01/19/20 [Rx] Fluticasone/Vilanterol [Breo Ellipta 100-25 MCG Inhalation Kit] 200 each IH DAILY 01/19/20 [History] Amoxicillin/Clavulanate K [Augmentin 875-125 MG] 1 tab PO BID 09/11/20 [History] Hydrocodone/Acetaminophen [Hydrocodon-Acetaminophen 5-300] 1 tab PO Q6H PRN 09/11/20 [History] predniSONE [Prednisone] 20 mg PO 09/11/20 [History] Past Medical History HEENT History: Reports: Allergic Rhinitis Cardiovascular History: Reports: Angina, Syncope Respiratory History: Reports: Asthma Gastrointestinal History: Reports: GERD Musculoskeletal History: Reports: Fracture Other Musculoskeletal History: leg,arm.collar bone, ankle skull fx Neurological History: Reports: Concussion, Head Trauma Endocrine/Metabolic History: Reports: Obesity/BMI 30+ Oncologic (Cancer) History: Reports: Other (See Below) Other Oncologic History: testicular - Infectious Disease History Infectious Disease History: Reports: Chicken Pox, Novel Coronavirus - Past Surgical History Male Surgical History: Reports: Other (See Below) Other Male Surgeries/Procedures: testicular cancer with radiation seeds Social & Family History - Family History Other HEENT Family History: No family history of sialoadenitis - Tobacco Use Tobacco Use Status *Q: Current Every Day Tobacco User Tobacco Use Within Last Twelve Months: Snuff/Dip - Caffeine Use Caffeine Use: Reports: None - Alcohol Use Alcohol Use History: No - Living Situation & Occupation Living situation: Reports: with Significant Other Occupation: Employed (lives in [place] with SO) H&P Review of Systems - Review of Systems: Review Of Systems: See Below Free Text/Narrative: A complete 12 point review of systems was obtained. Pertinent positives and negatives are noted in the history of present illness. All other systems were reviewed and were negative except as noted. Exam - Exam Exam: See Below - Vital Signs Vital Signs: Last Vital Signs Temp 36.4 C 09/11/20 15:21 Pulse 92 09/11/20 15:21 Resp 16 09/11/20 15:21 BP 135/91 H 09/11/20 15:21 Pulse Ox 98 09/11/20 15:21 Weight: 138.7 kg - Exam Quality Assessment: No: Supplemental Oxygen General: Alert, Oriented, Cooperative, Moderate Distress HEENT: Conjunctiva Clear, Pupils Equal, Other (Frontal teeth are intact and appeared normal. He has missing multiple teeth on both the upper and lower portions of the mouth on the right. No obvious purulent drainage or inflammation involving the gums. No abnormalities of the buccal mucosa of either cheek). No: Mucosa Moist & [place] (Dry) Neck: Supple, Trachea Midline. No: Lymphadenopathy Lungs: Clear to Auscultation, Normal Respiratory Effort Cardiovascular: Regular Rate, Regular Rhythm GI/Abdominal Exam: Normal Bowel Sounds, Soft, No Distention Extremities: No Pedal Edema. No: Increased Warmth Peripheral Pulses: 2+: Dorsalis Pedis (L), Dorsalis Pedis (R) Skin: Warm, Dry, Other (Swelling and warmth of the right side of the face around the parotid gland extending below the jawline. This is very tender). No: Rash Neuro Extensive - Mental Status: Alert, Oriented x3, Nl Response to Commands Neuro Extensive - Motor, Sensory, Reflexes: No: Dysarthria, Abnormal Motor, Tremor Psychiatric: Alert, Normal Affect - Patient Data Lab Results Last 24 hrs: Laboratory Results - last 24 hr 09/11/20 09/11/20 Range/Units 16:20 16:20 WBC 19.4 H (4.5-11.0) K/uL RBC 5.12 (4.30-5.90) M/uL Hgb 14.4 (12.0-15.0) g/dL Hct 43.1 (40.0-54.0) % MCV 84 (80-98) fL MCH 28 (27-31) pg MCHC 33 (32-36) % Plt Count 285 (150-400) K/uL Neut % (Auto) 76.6 H (36-66) % Lymph % (Auto) 11.8 L (24-44) % [place] % (Auto) 8.5 H (2-6) % Eos % (Auto) 2.9 (2-4) % Baso % (Auto) 0.2 (0-1) % C-Reactive Protein 18.72 H (0.0-0.3) mg/dL Result Diagrams: 09/11/20 16:20 09/11/20 16:20 Imaging Impressions Last 24 hrs: The report from the CT scan obtained at [facility] and [place] was reviewed. There was evidence for swelling and inflammation involving the masseter on the right as well as the musculature of the buccal mucosa of the right cheek. There was a 6 mm calcification on the superior portion of the right submandibular gland. No discrete abscess was identified. This was felt to represent myositis and less likely parotitis. Sepsis Event Note - Evaluation Sepsis Screening Result: No Definite Risk - Focused Exam Vital Signs: Vital Signs Temp Pulse Resp BP Pulse Ox 09/11/20 15:21 36.4 C 92 16 135/91 H 98 09/11/20 15:08 36.4 C 92 16 135/91 H 98 *Q Meaningful Use (ADM) - VTE Risk Assess *Q Each Risk Factor Represents 1 Point: Obesity ( BMI > 25 kg/m2) Total Score 1 Point Risk Factors: 1 Each Risk Factor Represents 2 Points: None Total Score 2 Point Risk Factors: 0 Each Risk Factor Represents 3 Points: None Total Score 3 Point Risk Factors: 0 Each Risk Factor Represents 5 Points: None Total Score 5 Point Risk Factors: 0 Venous Thromboembolism Risk Factor Score *Q: 1 - Problem List (1) Sialoadenitis of submandibular gland SNOMED Code(s): 253893055 ICD Code: K11.20 - SIALOADENITIS, UNSPECIFIED Status: Acute Current Visit: Yes (2) Mild persistent asthma SNOMED Code(s): 184394622 ICD Code: J45.30 - MILD PERSISTENT ASTHMA, UNCOMPLICATED Status: Chronic Current Visit: Yes Qualifiers: Asthma complication type: uncomplicated Qualified Code(s): J45.30 - Mild persistent asthma, uncomplicated Problem List Initiated/Reviewed/Updated: Yes Orders Last 24hrs: Active Orders 24 hr Category Date Time Status Patient Status Manage Transfer [TRANSFER] Routine ADT 09/11/20 17:02 Ordered COMPREHENSIVE METABOLIC PN,CMP [CHEM] Stat Lab 09/11/20 16:20 Received Clindamycin Phosphate [Cleocin] 900 mg Med 09/11/20 17:15 Active Sodium Chloride 0.9% [Normal Saline] 100 ml IV Q8H Sodium Chloride 0.9% [Normal Saline] 1,000 ml Med 09/11/20 16:15 Active IV ASDIRECTED Saline Lock Insert [OM.PC] Routine Oth 09/11/20 16:06 Ordered Resuscitation Status Routine Resus Stat 09/11/20 17:04 Ordered Medication Orders Sodium Chloride (Normal Saline) 1,000 mls @ 999 mls/hr IV ASDIRECTED [facility] Clindamycin Phosphate 900 mg/ (Sodium Chloride) 106 mls @ 200 mls/hr IV Q8H [facility] Assessment/Plan Comment:: ASSESSMENT AND PLAN - Sialoadenitis of the right submandibular gland-significant swelling extending across most of the face on the right side. Unable to eat or drink because of pain as well as nausea. Failing outpatient management with oral antibiotics and oral pain medications. Significant leukocytosis. Case was discussed with ENT and they recommended antibiotics, IV fluids and pain management initially and repeat scanning if not getting better or getting worse. -Antibiotic coverage with clindamycin -Symptomatic management of pain -IV fluids -Repeat labs in the morning -Repeat CT scan if worsening or not getting better Mild persistent asthma-no respiratory complaints at this time. No recent exacerbations. -Continue home medications Maintenance issues - -DVT prophylaxis-patient will be ambulatory -GI prophylaxis-not indicated -Nutrition-clear liquids, advance as tolerated -Good catheter-not indicated CODE STATUS -full code Admission justification -this patient will be admitted for inpatient services and is medically appropriate meeting medical necessity for inpatient admission as outlined in my documentation. I reasonably expect the patient will require inpatient services that span a period time over 2 midnights. I reasonably expect this patient to be discharged or transferred within 96 hours [facility]. Disposition -I anticipate discharge home after the hospital stay Primary care physician -Dr. Miah Buchanan M.D. - Mortality Measure Prognosis:: Good
[2020-09-11] MEDS ORDERED: HYDROmorphone 1 MG/ML Syringe IM ONE (17:28)
[2020-09-11] MEDS ORDERED: Albuterol 0.021% 0.63 MG/3 ML Neb Soln NEB PRN (17:42)
[2020-09-11] MEDS ORDERED: LORazepam 2 MG/ML SDV IVPUSH PRN (17:42)
[2020-09-11] MEDS ORDERED: Albuterol/Ipratropium 3.0-0.5 MG/3 ML Neb Soln NEB PRN (17:42)
[2020-09-11] MEDS ORDERED: methylPREDNISolone Sodium Succinate 125 MG/2 ML SDV IVPUSH ONE (17:42)
[2020-09-11] MEDS ORDERED: Ondansetron 4 MG/2 ML SDV IV PRN (17:42)
[2020-09-11] MEDS ORDERED: Magnesium Hydroxide 400 MG/5 ML Susp 30 ML Cup PO PRN (17:42)
[2020-09-11] MEDS ORDERED: HYDROmorphone 1 MG/ML Syringe IVPUSH ONE (17:44)
[2020-09-11] MEDS: Sodium Chloride 0.9% 1,000 ML IV SCH (17:58)
[2020-09-11] MEDS: Clindamycin Phosphate 900 MG in Sodium Chloride 0.9% 100 ML IV SCH (18:17)
[2020-09-11] MEDS: Budesonide 0.5 MG/2 ML Neb Susp INH SCH (21:09)
[2020-09-11] MEDS: Ondansetron 4 MG Tab.DIS PO PRN (21:17)
[2020-09-11] MEDS: Lactobacillus Rhamnosus GG (Probiotic) Cap PO SCH (21:31)
[2020-09-11] MEDS ORDERED: Ketorolac 30 MG/ML SDV IVPUSH PRN (22:07)
[2020-09-11] MEDS: HYDROmorphone 1 MG/ML Syringe IVPUSH PRN (22:53)
[2020-09-12] MEDS: methylPREDNISolone Sodium Succinate 125 MG/2 ML SDV IVPUSH SCH ×3 (01:46→17:27)
[2020-09-12] MEDS: Clindamycin Phosphate 900 MG in Sodium Chloride 0.9% 100 ML IV SCH ×3 (01:47→17:28)
[2020-09-12] MEDS: Sodium Chloride 0.9% 1,000 ML IV SCH ×3 (01:51→19:39)
[2020-09-12] MEDS: Budesonide 0.5 MG/2 ML Neb Susp INH SCH ×2 (06:33→20:46)
[2020-09-12] MEDS ORDERED: Non-Formulary Medication 1 Each (Fluticasone/Vilanterol 1 EACH Each) IH SCH (09:00)
[2020-09-12] MEDS: Formoterol/Mometasone 200-5 MCG 8.8 GM Inhaler IH SCH ×2 (09:07→20:44)
[2020-09-12] MEDS ORDERED: LORazepam 0.5 MG Tab PO PRN (09:51)
[2020-09-12] MEDS: Lactobacillus Rhamnosus GG (Probiotic) Cap PO SCH ×2 (09:51→20:43)
--- NOTE | 2020-09-12 09:52 | PCM.PN ---
- General Info Date of Service: 09/12/20 Subjective Update: There were no acute events overnight. He reports that his pain and swelling have both improved from yesterday. He does continue to have a fair amount of swelling involving the right cheek area extending towards the ear and then superiorly. He is able to open his mouth little better today. Nausea and vomiting have resolved and he did tolerate a small amount of food and liquid overnight. No fevers overnight. White count is better. Functional Status: Reports: Pain Controlled, Tolerating Diet - Review of Systems General: Denies: Fever HEENT: Reports: Other (right facial pain improving ) Gastrointestinal: Denies: Nausea - Patient Data Vitals - Most Recent: Last Vital Signs Temp 36.2 C 09/12/20 01:59 Pulse 61 09/12/20 01:59 Resp 18 09/12/20 01:59 BP 127/65 09/12/20 01:59 Pulse Ox 96 09/12/20 01:59 Weight - Most Recent: 138.7 kg I&O - Last 24 Hours: Intake & Output 09/11/20 09/12/20 09/12/20 22:59 06:59 14:59 Output Total 450 Balance -450 Lab Results Last 24 Hours: Laboratory Results - last 24 hr 09/11/20 09/11/20 09/11/20 Range/Units 16:20 16:20 16:20 WBC 19.4 H (4.5-11.0) K/uL RBC 5.12 (4.30-5.90) M/uL Hgb 14.4 (12.0-15.0) g/dL Hct 43.1 (40.0-54.0) % MCV 84 (80-98) fL MCH 28 (27-31) pg MCHC 33 (32-36) % Plt Count 285 (150-400) K/uL Neut % (Auto) 76.6 H (36-66) % Lymph % (Auto) 11.8 L (24-44) % Travis % (Auto) 8.5 H (2-6) % Eos % (Auto) 2.9 (2-4) % Baso % (Auto) 0.2 (0-1) % Sodium 137 L (140-148) mmol/L Potassium 4.2 (3.6-5.2) mmol/L Chloride 101 (100-108) mmol/L Carbon Dioxide 27 (21-32) mmol/L Anion Gap 13.2 (5.0-14.0) mmol/L BUN 11 (7-18) mg/dL Creatinine 1.0 (0.8-1.3) mg/dL Est Cr Clr Drug Dosing 127.79 mL/min Estimated GFR (MDRD) > 60 (>60) Glucose 84 (74-106) mg/dL Calcium 9.2 (8.5-10.1) mg/dL Total Bilirubin 0.5 (0.2-1.0) mg/dL AST 12 L (15-37) U/L ALT 19 (12-78) U/L Alkaline Phosphatase 121 H (46-116) U/L C-Reactive Protein 18.72 H (0.0-0.3) mg/dL Total Protein 7.0 (6.4-8.2) g/dL Albumin 3.1 L (3.4-5.0) g/dL Globulin 3.9 H (2.3-3.5) g/dL Albumin/Globulin Ratio 0.8 L (1.2-2.2) 09/12/20 Range/Units 05:53 WBC 15.2 H (4.5-11.0) K/uL RBC 4.92 (4.30-5.90) M/uL Hgb 13.5 (12.0-15.0) g/dL Hct 40.2 (40.0-54.0) % MCV 82 (80-98) fL MCH 27 (27-31) pg MCHC 34 (32-36) % Plt Count 386 (150-400) K/uL Neut % (Auto) (36-66) % Lymph % (Auto) (24-44) % Travis % (Auto) (2-6) % Eos % (Auto) (2-4) % Baso % (Auto) (0-1) % Sodium (140-148) mmol/L Potassium (3.6-5.2) mmol/L Chloride (100-108) mmol/L Carbon Dioxide (21-32) mmol/L Anion Gap (5.0-14.0) mmol/L BUN (7-18) mg/dL Creatinine (0.8-1.3) mg/dL Est Cr Clr Drug Dosing mL/min Estimated GFR (MDRD) (>60) Glucose (74-106) mg/dL Calcium (8.5-10.1) mg/dL Total Bilirubin (0.2-1.0) mg/dL AST (15-37) U/L ALT (12-78) U/L Alkaline Phosphatase (46-116) U/L C-Reactive Protein (0.0-0.3) mg/dL Total Protein (6.4-8.2) g/dL Albumin (3.4-5.0) g/dL Globulin (2.3-3.5) g/dL Albumin/Globulin Ratio (1.2-2.2) Med Orders - Current: Current Medications Acetaminophen (Acetaminophen 325 Mg Tab) 650 mg PO Q4H PRN PRN Reason: Pain (Mild 1-3)/fever Albuterol (Albuterol 0.021% 0.63 Mg/3 Ml Neb Soln) 0.63 mg NEB Q2H PRN PRN Reason: Wheezing Albuterol/Ipratropium (Albuterol/Ipratropium 3.0-0.5 Mg/3 Ml Neb Soln) 3 ml NEB QID PRN PRN Reason: Wheezing Budesonide (Budesonide 0.5 Mg/2 Ml Neb Susp) 0.5 mg INH BIDRT [facility] Last Admin: 09/12/20 06:33 Dose: 0.5 mg Documented by: Hydromorphone HCl (Hydromorphone 1 Mg/Ml Syringe) 1 mg IVPUSH Q2H PRN PRN Reason: Pain Last Admin: 09/11/20 22:53 Dose: 1 mg Documented by: Sodium Chloride (Normal Saline) 1,000 mls @ 125 mls/hr IV ASDIRECTED [facility] Last Admin: 09/12/20 01:51 Dose: 125 mls/hr Documented by: Clindamycin Phosphate 900 mg/ (Sodium Chloride) 106 mls @ 200 mls/hr IV Q8H [facility] Ketorolac Tromethamine (Ketorolac 30 Mg/Ml Sdv) 30 mg IVPUSH Q6H PRN PRN Reason: Pain (moderate 4-6) Stop: 09/16/20 17:07 Lactobacillus Rhamnosus (Lactobacillus Rhamnosus Gg (Probiotic) Cap) 1 cap PO BID [facility] Last Admin: 09/11/20 21:31 Dose: 1 cap Documented by: Lorazepam (Lorazepam 2 Mg/Ml Sdv) 0.5 mg IVPUSH Q4H PRN PRN Reason: Nausea/Vomiting Last Admin: 09/11/20 21:32 Dose: 0.5 mg Documented by: Magnesium Hydroxide (Magnesium Hydroxide 400 Mg/5 Ml Susp 30 Ml Cup) 30 ml PO Q12H PRN PRN Reason: Constipation Methylprednisolone Sodium Succinate (Methylprednisolone Sodium Succinate 125 Mg/2 Ml Sdv) 62.5 mg IVPUSH Q8H [facility] Stop: 09/12/20 23:59 Last Admin: 09/12/20 01:46 Dose: 62.5 mg Documented by: Mometasone Furoate/Formoterol Fumar (Formoterol/Mometasone 200-5 Mcg 8.8 Gm Inhaler) 2 puff IH BID [facility] Last Admin: 09/12/20 09:07 Dose: 2 puff Documented by: Ondansetron HCl (Ondansetron 4 Mg/2 Ml Sdv) 4 mg IV Q6H PRN PRN Reason: Nausea/Vomiting Ondansetron HCl (Ondansetron 4 Mg Tab.Dis) 4 mg PO Q6H PRN PRN Reason: Nausea able to take PO Last Admin: 09/11/20 21:17 Dose: 4 mg Documented by: Oxycodone HCl (Oxycodone 5 Mg Tab) 5 - 10 mg PO Q4H PRN PRN Reason: Pain Senna/Docusate Sodium (Docusate Sodium/Sennosides 50-8.6 Mg Tab) 1 tab PO BID PRN PRN Reason: Constipation Discontinued Medications Hydromorphone HCl (Hydromorphone 1 Mg/Ml Syringe) 2 mg IM ONETIME ONE Stop: 09/11/20 17:29 Hydromorphone HCl (Hydromorphone 1 Mg/Ml Syringe) 1 mg IVPUSH ONETIME ONE Stop: 09/11/20 17:45 Last Admin: 09/11/20 17:47 Dose: 1 mg Documented by: Sodium Chloride (Normal Saline) 1,000 mls @ 999 mls/hr IV ASDIRECTED [facility] Last Admin: 09/11/20 18:07 Dose: 999 mls/hr Documented by: Clindamycin Phosphate 900 mg/ (Sodium Chloride) 106 mls @ 200 mls/hr IV Q8H [facility] Last Admin: 09/12/20 01:47 Dose: 200 mls/hr Documented by: Ketorolac Tromethamine (Ketorolac 30 Mg/Ml Sdv) 30 mg IVPUSH ONETIME ONE Stop: 09/11/20 16:07 Last Admin: 09/11/20 17:51 Dose: 30 mg Documented by: Methylprednisolone Sodium Succinate (Methylprednisolone Sodium Succinate 125 Mg/2 Ml Sdv) 125 mg IVPUSH ONETIME ONE Stop: 09/11/20 17:43 Last Admin: 09/11/20 18:59 Dose: 125 mg Documented by: - Exam Quality Assessment: No: Supplemental Oxygen General: Alert, Oriented, Cooperative, No Acute Distress HEENT: Other (swelling of right cheek area ) Lungs: Normal Respiratory Effort GI/Abdominal Exam: Soft, No Distention Extremities: No Pedal Edema Psy/Mental Status: Alert, Normal Affect - Patient Data Lab Results Last 24 hrs: Laboratory Results - last 24 hr 09/11/20 09/11/20 09/11/20 Range/Units 16:20 16:20 16:20 WBC 19.4 H (4.5-11.0) K/uL RBC 5.12 (4.30-5.90) M/uL Hgb 14.4 (12.0-15.0) g/dL Hct 43.1 (40.0-54.0) % MCV 84 (80-98) fL MCH 28 (27-31) pg MCHC 33 (32-36) % Plt Count 285 (150-400) K/uL Neut % (Auto) 76.6 H (36-66) % Lymph % (Auto) 11.8 L (24-44) % Travis % (Auto) 8.5 H (2-6) % Eos % (Auto) 2.9 (2-4) % Baso % (Auto) 0.2 (0-1) % Sodium 137 L (140-148) mmol/L Potassium 4.2 (3.6-5.2) mmol/L Chloride 101 (100-108) mmol/L Carbon Dioxide 27 (21-32) mmol/L Anion Gap 13.2 (5.0-14.0) mmol/L BUN 11 (7-18) mg/dL Creatinine 1.0 (0.8-1.3) mg/dL Est Cr Clr Drug Dosing 127.79 mL/min Estimated GFR (MDRD) > 60 (>60) Glucose 84 (74-106) mg/dL Calcium 9.2 (8.5-10.1) mg/dL Total Bilirubin 0.5 (0.2-1.0) mg/dL AST 12 L (15-37) U/L ALT 19 (12-78) U/L Alkaline Phosphatase 121 H (46-116) U/L C-Reactive Protein 18.72 H (0.0-0.3) mg/dL Total Protein 7.0 (6.4-8.2) g/dL Albumin 3.1 L (3.4-5.0) g/dL Globulin 3.9 H (2.3-3.5) g/dL Albumin/Globulin Ratio 0.8 L (1.2-2.2) 09/12/20 Range/Units 05:53 WBC 15.2 H (4.5-11.0) K/uL RBC 4.92 (4.30-5.90) M/uL Hgb 13.5 (12.0-15.0) g/dL Hct 40.2 (40.0-54.0) % MCV 82 (80-98) fL MCH 27 (27-31) pg MCHC 34 (32-36) % Plt Count 386 (150-400) K/uL Neut % (Auto) (36-66) % Lymph % (Auto) (24-44) % Travis % (Auto) (2-6) % Eos % (Auto) (2-4) % Baso % (Auto) (0-1) % Sodium (140-148) mmol/L Potassium (3.6-5.2) mmol/L Chloride (100-108) mmol/L Carbon Dioxide (21-32) mmol/L Anion Gap (5.0-14.0) mmol/L BUN (7-18) mg/dL Creatinine (0.8-1.3) mg/dL Est Cr Clr Drug Dosing mL/min Estimated GFR (MDRD) (>60) Glucose (74-106) mg/dL Calcium (8.5-10.1) mg/dL Total Bilirubin (0.2-1.0) mg/dL AST (15-37) U/L ALT (12-78) U/L Alkaline Phosphatase (46-116) U/L C-Reactive Protein (0.0-0.3) mg/dL Total Protein (6.4-8.2) g/dL Albumin (3.4-5.0) g/dL Globulin (2.3-3.5) g/dL Albumin/Globulin Ratio (1.2-2.2) Result Diagrams: 09/12/20 05:53 09/11/20 16:20 Sepsis Event Note - Evaluation Sepsis Screening Result: No Definite Risk - Focused Exam Vital Signs: Vital Signs Temp Pulse Resp BP Pulse Ox 09/12/20 01:59 36.2 C 61 18 127/65 96 09/11/20 22:00 35.8 C L 68 18 136/78 96 - Problem List & Annotations (1) Sialoadenitis of submandibular gland SNOMED Code(s): 334733179 Code(s): K11.20 - SIALOADENITIS, UNSPECIFIED Status: Acute Current Visit: Yes (2) Mild persistent asthma SNOMED Code(s): 406877866 Code(s): J45.30 - MILD PERSISTENT ASTHMA, UNCOMPLICATED Status: Chronic Current Visit: Yes Qualifiers: Asthma complication type: uncomplicated Qualified Code(s): J45.30 - Mild persistent asthma, uncomplicated - Problem List Review Problem List Initiated/Reviewed/Updated: Yes - My Orders Last 24 Hours: My Active Orders 09/11/20 Dinner Clear Liquid Diet [DIET] 09/11/20 17:04 Resuscitation Status Routine 09/11/20 17:42 Acetaminophen [TylenoL] 650 mg PO Q4H PRN Albuterol [Proventil Neb Soln] 0.63 mg NEB Q2H PRN Albuterol/Ipratropium [DuoNeb 3.0-0.5 MG/3 ML] 3 ml NEB QID PRN Docusate Sodium/Sennosides [Senna Plus] 1 tab PO BID PRN HYDROmorphone [Dilaudid] 1 mg IVPUSH Q2H PRN LORazepam [Ativan] 0.5 mg IVPUSH Q4H PRN Magnesium Hydroxide [Milk of Magnesia] 30 ml PO Q12H PRN Ondansetron [Zofran ODT] 4 mg PO Q6H PRN Ondansetron [Zofran] 4 mg IV Q6H PRN Sodium Chloride 0.9% [Normal Saline] 1,000 ml IV ASDIRECTED oxyCODONE 5 - 10 mg PO Q4H PRN 09/11/20 17:42 Patient Status [ADT] Routine Intake and Output [RC] QSHIFT Notify Provider Vital Signs [RC] ASDIRECTED Oxygen Therapy [RC] PRN RT Aerosol Therapy [RC] ASDIRECTED Up ad Dolly [RC] ASDIRECTED Vital Signs [RC] Q4H 09/11/20 21:00 Budesonide [Pulmicort] 0.5 mg INH BIDRT Lactobacillus Rhamnosus GG [Culturelle] 1 cap PO BID 09/11/20 22:07 Ketorolac [Toradol] 30 mg IVPUSH Q6H PRN 09/12/20 02:00 methylPREDNISolone Sod Succ [Solu-MEDROL] 62.5 mg IVPUSH Q8H 09/12/20 09:00 Mometasone/Formoterol [Dulera 200-5 MCG] 2 puff IH BID 09/12/20 09:51 LORazepam [Ativan] 0.5 mg PO BEDTIME PRN 09/12/20 10:00 Clindamycin Phosphate [Cleocin] 900 mg Sodium Chloride 0.9% [Normal Saline] 100 ml IV Q8H 09/13/20 05:00 CBC W/O DIFF,HEMOGRAM [HEME] Timed (1) CRP [C-REACTIVE PROTEIN] [CHEM] Timed 09/13/20 08:00 predniSONE 40 mg PO WITHBREAKFAST - Plan Plan:: ASSESSMENT AND PLAN - Sialoadenitis of the right submandibular gland-significant swelling extending across most of the face on the right side. Clinically improving so far. Less pain and swelling but still barely able to open his mouth. -Antibiotic coverage with clindamycin -Symptomatic management of pain -Continue IV fluids -Repeat labs in the morning -Repeat CT scan if worsening or not getting better Mild persistent asthma-no respiratory complaints at this time. No recent exacerbations. -Continue home medications Maintenance issues - -DVT prophylaxis-patient will be ambulatory -GI prophylaxis-not indicated -Nutrition-clear liquids, advance as tolerated Disposition -I anticipate discharge home after the hospital stay Primary care physician -Dr. Miah Buchanan M.D.
[2020-09-12] MEDS: oxyCODONE 5 MG Tab PO PRN ×2 (09:55→20:55)
[2020-09-12] MEDS: HYDROmorphone 1 MG/ML Syringe IVPUSH PRN ×2 (11:33→17:27)
[2020-09-12] MEDS: Ondansetron 4 MG Tab.DIS PO PRN (20:42)
[2020-09-12] MEDS: Acetaminophen 325 MG Tab PO PRN (21:59)
[2020-09-13] MEDS: Clindamycin Phosphate 900 MG in Sodium Chloride 0.9% 100 ML IV SCH ×2 (01:17→10:32)
[2020-09-13] MEDS: oxyCODONE 5 MG Tab PO PRN ×4 (01:18→14:40)
[2020-09-13] MEDS: Budesonide 0.5 MG/2 ML Neb Susp INH SCH (06:57)
[2020-09-13] MEDS ORDERED: predniSONE 20 MG Tab PO SCH (08:00)
[2020-09-13] MEDS: Lactobacillus Rhamnosus GG (Probiotic) Cap PO SCH (08:05)
[2020-09-13] MEDS: Acetaminophen 325 MG Tab PO PRN (08:05)
[2020-09-13] MEDS: Formoterol/Mometasone 200-5 MCG 8.8 GM Inhaler IH SCH (08:31)
[2020-09-13] MEDS: Sodium Chloride 0.9% 75 ML IV ONE ×2 (09:26→10:05)
[2020-09-13] MEDS: Iopamidol 612 MG/ML 100 ML Bottle IV PRN ×2 (09:28→10:04)
[2020-09-13] MEDS: Sodium Chloride 0.9% 10 ML Syringe FLUSH PRN ×2 (09:28→10:04)
[2020-09-13] MEDS: HYDROmorphone 1 MG/ML Syringe IVPUSH PRN ×2 (09:30→15:50)
--- NOTE | 2020-09-13 10:14 | CRLCT ---
For Patients: As a result of the Century Cures Act, medical imaging exams and procedure reports are released immediately into your electronic medical record. You may view this report before your referring provider. If you have questions, please contact your health care provider. Indication: Follow-up sialoadenitis, myositis Technique: Volumetric multidetector CT images of the orbital and facial soft tissues were obtained after the administration of low osmolar intravenous contrast. 100 cc Isovue-300 low osmolar intravenous contrast Comparison: None available. Findings: The partially visualized brain parenchyma is normal in attenuation without evidence of abnormal enhancement. The globes and extra-ocular muscles are unremarkable. There is demonstration of a right periorbital preseptal soft tissue swelling. The retrobulbar fat is unremarkable without evidence of inflammatory change or fluid collection. There is minimal mucosal thickening seen within the paranasal sinuses. The mastoid air cells are clear. The nasopharynx is unremarkable. The fossae of Rosenmuller are clear. The partially visualized right pants presser space demonstrates marked enlargement of the right master and likely medial pterygoid muscle with demonstration of a questionable rim enhancing fluid collection within the muscle centered at the angle of the mandible seen on series 3, image 1 measuring 2.8 x 2.5 centimeters. There is mild superficial soft tissue swelling. There is no evidence of pathologically enlarged cervical lymph node. The facial osseus structures are grossly intact without acute osseus abnormality. Impression: 1. Demonstration of marked enlargement of the partially visualized right pants presser space including the right mass inner and posterior aspect of the medial pterygoid with a 2.8 x 2.5 centimeter rim enhancing fluid collection which may represent a developing intramuscular abscess. Consider further evaluation with CT soft tissue neck for improved characterization of the entire right pants presser space and characterization of likely developing abscess. Please note that all CT scans at this facility use dose modulation, iterative reconstruction, and/or weight-based dosing when appropriate to reduce radiation dose to as low as reasonably achievable. Dictated by Mauricio Reed MD @ 09/13/2020 10:13:[address] Mauricio Reed @ Sep 13 2020 10:13AM
[2020-09-13] MEDS ORDERED: Sodium Chloride 0.9% 10 ML Syringe FLUSH PRN (10:46)
[2020-09-13] MEDS ORDERED: Iopamidol 612 MG/ML 100 ML Bottle IV PRN (10:46)
--- NOTE | 2020-09-13 11:59 | CRLCT ---
For Patients: As a result of the 21st Century Cures Act, medical imaging exams and procedure reports are released immediately into your electronic medical record. You may view this report before your referring provider. If you have questions, please contact your health care provider. Indication: Right-sided sialoadenitis, myositis Technique: Volumetric multidetector CT images of the cervical soft tissues were obtained after the administration of low osmolar intravenous contrast. 100 cc Isovue-300 low osmolar intravenous contrast Comparison: None available. Findings: The partially visualized brain is grossly normal in attenuation. The orbits are not included within the [id number]. There is polypoid mucosal thickening seen throughout the paranasal sinuses. The mastoid air cells are clear. The nasopharynx is unremarkable. The fossae of Rosenmuller are clear. There is mild nonspecific prominence of the right greater than left palatine tonsils. The hypopharynx is clear. There is demonstration of marked edema and heterogeneous appearance of the yarn inspector space muscles including the mass center and pterygoid muscles with effacement of the adjacent parapharyngeal space. There is demonstration of a large rim enhancing fluid collection within the muscle centered at the angle of the mandible measuring 3.5 x 3.0 centimeters in greatest dimension. There is minimal associated inflammation of the inferior, medial right parotid gland. There are nonobstructing calculi within the inferior, medial left submandibular gland the largest measuring 7.0 millimeters. There is no evidence of obstructing radiopaque sialolith. The vocal folds are nonthickened with symmetrical appearance. The thyroid gland is normal in attenuation. There are reactive cervical lymph nodes seen in the right greater than left II soft tissues. There is mild effacement of the right jugular vein secondary to edema within the right yarn inspector space. Otherwise the cervical vasculature is grossly preserved without significant atherosclerotic calcification within the arteries. The lung apices are clear. The cervical vertebral body heights are grossly maintained with mild straightening of the normal cervical lordosis. There is no evidence of significant spondylolisthesis. Impression: Demonstration of marked edema within the right yarn inspector space predominantly within the right master and pterygoid muscles with demonstration of a 3.5 x 3.0 centimeter rim enhancing fluid collection adjacent to the angle of the mandible with minimal inflammatory change of the medial inferior right parotid gland. No large radiopaque sialolith is appreciated. There is demonstration of left-sided submandibular silo lithiasis with a calculus measuring 7 millimeters. Findings were discussed with Dr. Norman at 11:55 a.m. September 13, [address] Please note that all CT scans at this facility use dose modulation, iterative reconstruction, and/or weight-based dosing when appropriate to reduce radiation dose to as low as reasonably achievable. Dictated by Mauricio Reed MD @ 09/13/2020 11:57:[address] Mauricio Reed @ Sep 13 2020 11:57AM
--- NOTE | 2020-09-13 14:11 | PCM.DCSUM1 ---
Discharge Summary - Hospital Course Brief History: 34-year-old male with history of mild intermittent asthma who presented with progressive right cheek and jaw pain and swelling. He was admitted for management of presumed right-sided sialoadenitis. 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 SNOMED Code(s): 671057747 ICD Code: K12.2 - CELLULITIS AND ABSCESS OF MOUTH Status: Acute Current Visit: Yes (2) Sialoadenitis of submandibular gland SNOMED Code(s): 389026546 ICD Code: K11.20 - SIALOADENITIS, UNSPECIFIED Status: Ruled-out Current Visit: Yes (3) Mild persistent asthma SNOMED Code(s): 784230799 ICD Code: J45.30 - MILD PERSISTENT ASTHMA, UNCOMPLICATED Status: Chronic Current Visit: Yes Qualifiers: Asthma complication type: uncomplicated Qualified Code(s): J45.30 - Mild persistent asthma, uncomplicated - Patient Summary/Data Hospital Course: Phuc presented to the emergency room with progressive pain and swelling involving the right side of his face and jaw. Symptoms have been present for about 10 days and he had been evaluated on 2 previous occasions including most recently in the emergency room in [place], [place]. He was diagnosed with myositis involving the masseter muscle and started on Augmentin. Despite antibiotic initiation his condition worsened and he presented to our emergency room on 09/11. Work-up in the emergency room revealed leukocytosis with a white blood cell count of 19,000. There is no evidence for sepsis. He had significant swelling as well as pain. He was able to open his mouth only minimally. He had significant nausea and was unable to keep down oral medications. We did consult with ear nose and throat specialty at that point they recommended IV antibiotics and hydration since the CT scan did not show a definitive abscess the day before. He was started on IV clindamycin as well as steroids. Overnight following admission the patient did show some improvement with slight improvement in his swelling and pain. His white blood cell count had improved slightly. We continued IV antibiotics an additional 24 hours. There were no acute events overnight but on the morning of discharge his pain had increased to fair amount. His swelling remained stable but had not improved further. His white blood cell count was up to 21,000. We repeated a CT scan with maxillofacial as well as neck soft tissue. This showed significant inflammation involving the masseter muscle as well as a 3.5 x 3 cm abscess involving the masseter muscle. Oral maxillofacial surgery was contacted at [facility] in [place]. They did recommend surgical drainage. The patient will be transferred there for surgical intervention. He is stable and safe for transfer and the benefits of transfer outweigh the risks at this point. - Patient Instructions Diet: Regular Diet as Tolerated Activity: As Tolerated Showering/Bathing: May Shower - Discharge Plan *PRESCRIPTION DRUG MONITORING PROGRAM REVIEWED*: Not Applicable *COPY OF PRESCRIPTION DRUG MONITORING REPORT IN PATIENT BONNIE: Not Applicable Home Medications: Home Meds Albuterol [Proventil Neb Soln] 0.63 mg NEB Q2H PRN #25 neb 05/13/13 [Rx] Albuterol/Ipratropium [DuoNeb 3.0-0.5 MG/3 ML] 3 ml NEB QID PRN #20 neb 05/13/13 [Rx] Budesonide [Pulmicort] 1 ampule INH BID 11/02/19 [History] Albuterol Sulfate [Proair Hfa] 8.5 gm IH Q4H PRN #1 hfa.aer.ad 01/19/20 [Rx] Fluticasone/Vilanterol [Breo Ellipta 100-25 MCG Inhalation Kit] 200 each IH DAILY 01/19/20 [History] Amoxicillin/Clavulanate K [Augmentin 875-125 MG] 1 tab PO BID 09/11/20 [History] Hydrocodone/Acetaminophen [Hydrocodon-Acetaminophen 5-300] 1 tab PO Q6H PRN 09/11/20 [History] predniSONE [Prednisone] 20 mg PO 09/11/20 [History] Oxygen Therapy Mode: Room Air Referrals: Javier Dooley MD [Physician] - 09/20/20 10:20 am (Please arrive 15 minutes [email or web address] to register for your appointment.) - Discharge Summary/Plan Comment DC Time >30 min.: Yes (60-transfer to [facility] ) - Patient Data Vitals - Most Recent: Last Vital Signs Temp 35.5 C L 09/13/20 07:53 Pulse 55 L 09/13/20 07:53 Resp 12 09/13/20 07:53 BP 114/61 09/13/20 07:53 Pulse Ox 100 09/13/20 07:53 Weight - Most Recent: 138.346 kg I&O - Last 24 hours: Intake & Output 09/12/20 09/13/20 09/13/20 22:59 06:59 14:59 Intake Total 3662 Output Total 325 Balance 3337 Lab Results - Last 24 hrs: Laboratory Results - last 24 hr 09/13/20 09/13/20 Range/Units 06:02 06:02 WBC 21.4 H (4.5-11.0) K/uL RBC 4.45 (4.30-5.90) M/uL Hgb 12.1 (12.0-15.0) g/dL Hct 36.6 L (40.0-54.0) % MCV 82 (80-98) fL MCH 27 (27-31) pg MCHC 33 (32-36) % Plt Count 371 (150-400) K/uL C-Reactive Protein 4.33 H (0.0-0.3) mg/dL Med Orders - Current: Current Medications Acetaminophen (Acetaminophen 325 Mg Tab) 650 mg PO Q4H PRN PRN Reason: Pain (Mild 1-3)/fever Last Admin: 09/13/20 08:05 Dose: 650 mg Documented by: Albuterol/Ipratropium (Albuterol/Ipratropium 3.0-0.5 Mg/3 Ml Neb Soln) 3 ml NEB QID PRN PRN Reason: Wheezing Last Admin: 09/13/20 04:27 Dose: 3 ml Documented by: Budesonide (Budesonide 0.5 Mg/2 Ml Neb Susp) 0.5 mg INH BIDRT ROJAS Last Admin: 09/13/20 06:57 Dose: 0.5 mg Documented by: Hydromorphone HCl (Hydromorphone 1 Mg/Ml Syringe) 1 mg IVPUSH Q2H PRN PRN Reason: Pain Last Admin: 09/12/20 17:27 Dose: 1 mg Documented by: Sodium Chloride (Normal Saline) 1,000 mls @ 125 mls/hr IV ASDIRECTED ROJAS Last Admin: 09/12/20 19:39 Dose: 125 mls/hr Documented by: Clindamycin Phosphate 900 mg/ (Sodium Chloride) 106 mls @ 200 mls/hr IV Q8H [facility] Last Admin: 09/13/20 10:32 Dose: 200 mls/hr Documented by: Iopamidol (Iopamidol 612 Mg/Ml 100 Ml Bottle) 100 ml IV . DIRECTED PRN PRN Reason: RADIOLOGY EXAM Last Admin: 09/13/20 10:04 Dose: 100 ml Documented by: Ketorolac Tromethamine (Ketorolac 30 Mg/Ml Sdv) 30 mg IVPUSH Q6H PRN PRN Reason: Pain (moderate 4-6) Stop: 09/16/20 17:07 Lactobacillus Rhamnosus (Lactobacillus Rhamnosus Gg (Probiotic) Cap) 1 cap PO BID [facility] Last Admin: 09/13/20 08:05 Dose: 1 cap Documented by: Lorazepam (Lorazepam 2 Mg/Ml Sdv) 0.5 mg IVPUSH Q4H PRN PRN Reason: Nausea/Vomiting Last Admin: 09/11/20 21:32 Dose: 0.5 mg Documented by: Lorazepam (Lorazepam 0.5 Mg Tab) 0.5 mg PO BEDTIME PRN PRN Reason: Sleep Last Admin: 09/12/20 21:56 Dose: 0.5 mg Documented by: Magnesium Hydroxide (Magnesium Hydroxide 400 Mg/5 Ml Susp 30 Ml Cup) 30 ml PO Q12H PRN PRN Reason: Constipation Mometasone Furoate/Formoterol Fumar (Formoterol/Mometasone 200-5 Mcg 8.8 Gm Inhaler) 2 puff IH BID [facility] Last Admin: 09/13/20 08:31 Dose: 2 puff Documented by: Ondansetron HCl (Ondansetron 4 Mg/2 Ml Sdv) 4 mg IV Q6H PRN PRN Reason: Nausea/Vomiting Last Admin: 09/12/20 11:32 Dose: 4 mg Documented by: Ondansetron HCl (Ondansetron 4 Mg Tab.Dis) 4 mg PO Q6H PRN PRN Reason: Nausea able to take PO Last Admin: 09/12/20 20:42 Dose: 4 mg Documented by: Oxycodone HCl (Oxycodone 5 Mg Tab) 5 - 10 mg PO Q4H PRN PRN Reason: Pain Last Admin: 09/13/20 10:35 Dose: 10 mg Documented by: Prednisone (Prednisone 20 Mg Tab) 40 mg PO WITHBREAKFAST [facility] Last Admin: 09/13/20 07:50 Dose: 40 mg Documented by: Senna/Docusate Sodium (Docusate Sodium/Sennosides 50-8.6 Mg Tab) 1 tab PO BID PRN PRN Reason: Constipation Discontinued Medications Albuterol (Albuterol 0.021% 0.63 Mg/3 Ml Neb Soln) 0.63 mg NEB Q2H PRN PRN Reason: Wheezing Hydromorphone HCl (Hydromorphone 1 Mg/Ml Syringe) 2 mg IM ONETIME ONE Stop: 09/11/20 17:29 Hydromorphone HCl (Hydromorphone 1 Mg/Ml Syringe) 1 mg IVPUSH ONETIME ONE Stop: 09/11/20 17:45 Last Admin: 09/11/20 17:47 Dose: 1 mg Documented by: Sodium Chloride (Normal Saline) 1,000 mls @ 999 mls/hr IV ASDIRECTED [facility] Last Admin: 09/11/20 18:07 Dose: 999 mls/hr Documented by: Clindamycin Phosphate 900 mg/ (Sodium Chloride) 106 mls @ 200 mls/hr IV Q8H [facility] Last Admin: 09/12/20 01:47 Dose: 200 mls/hr Documented by: Sodium Chloride (Normal Saline) 75 mls @ 3 mls/sec IV ONETIME ONE Stop: 09/13/20 09:08 Last Admin: 09/13/20 10:05 Dose: 3 mls/sec Documented by: Sodium Chloride (Normal Saline) 70 mls @ 3 mls/sec IV ONETIME ONE Stop: 09/13/20 10:47 Last Admin: 09/13/20 10:53 Dose: 3 mls/sec Documented by: Iopamidol (Iopamidol 612 Mg/Ml 100 Ml Bottle) 100 ml IV . DIRECTED PRN PRN Reason: RADIOLOGY EXAM Stop: 09/13/20 10:47 Last Admin: 09/13/20 10:53 Dose: 100 ml Documented by: Ketorolac Tromethamine (Ketorolac 30 Mg/Ml Sdv) 30 mg IVPUSH ONETIME ONE Stop: 09/11/20 16:07 Last Admin: 09/11/20 17:51 Dose: 30 mg Documented by: Methylprednisolone Sodium Succinate (Methylprednisolone Sodium Succinate 125 Mg/2 Ml Sdv) 125 mg IVPUSH ONETIME ONE Stop: 09/11/20 17:43 Last Admin: 09/11/20 18:59 Dose: 125 mg Documented by: Methylprednisolone Sodium Succinate (Methylprednisolone Sodium Succinate 125 Mg/2 Ml Sdv) 62.5 mg IVPUSH Q8H ROJAS Stop: 09/12/20 23:59 Last Admin: 09/12/20 17:27 Dose: 62.5 mg Documented by: Sodium Chloride (Sodium Chloride 0.9% 10 Ml Syringe) 10 ml FLUSH ONETIME PRN PRN Reason: PER RADIOLOGY PROTOCOL Stop: 09/13/20 12:00 Last Admin: 09/13/20 10:04 Dose: 10 ml Documented by: Sodium Chloride (Sodium Chloride 0.9% 10 Ml Syringe) 10 ml FLUSH ONETIME PRN PRN Reason: PER RADIOLOGY PROTOCOL Stop: 09/13/20 10:47 Last Admin: 09/13/20 10:53 Dose: 10 ml Documented by:
[2020-09-13] MEDS: Ondansetron 4 MG Tab.DIS PO PRN (15:49)
== END 2020-09-13 16:15 | DRG 155 ==
LOC: JP.ED 14:44 → JP.ICU 17:02
PROVIDERS: ADMIT Internal Medicine; ATTEND Internal Medicine
DX: K11.20 Sialoadenitis, unspecified (principal); K12.2 Cellulitis and abscess of mouth; J45.30 Mild persistent asthma, uncomplicated; M60.9 Myositis, unspecified; K21.9 Gastro-esophageal reflux disease without esophagitis; E66.9 Obesity, unspecified; F17.210 Nicotine dependence, cigarettes, uncomplicated; J30.9 Allergic rhinitis, unspecified; Z85.47 Personal history of malignant neoplasm of testis; Z79.899 Other long term (current) drug therapy; Z79.52 Long term (current) use of systemic steroids; Z68.37 Body mass index [BMI] 37.0-37.9, adult; Z92.3 Personal history of irradiation
CPT/HCPCS: 36415; 70487; 70491; 80053; 85025; 85027; 86140; 94640; 99284; A9270-GY; J1170; J1885; J2060; J2405; J2930; J3490; J7030; J7512; J7620-GY; Q9967

== ENCOUNTER 2021-01-23 09:30 | Emergency (ER) | payer MEDICAID ==
[2021-01-23] MEDS: Albuterol/Ipratropium 3.0-0.5 MG/3 ML Neb Soln NEB ONE (09:53)
--- NOTE | 2021-01-23 10:16 | EDM.PDOC ---
ED HPI GENERAL MEDICAL PROBLEM - General Chief Complaint: Chest Pain Stated Complaint: HEART PROBLEMS Time Seen by Provider: 01/23/21 09:45 Source of Information: Reports: Patient History Limitations: Reports: No Limitations - History of Present Illness INITIAL COMMENTS - FREE TEXT/NARRATIVE: 35-year-old male with chronic asthma, has had a flareup of chest pressure and tightness over the past 3 or 4 days. He was on prednisone for his asthma 2 weeks ago and felt better at that time. He has had a cardiology consult, he was told his heart is okay but his "blood was too thick". He is also having some intermittent left arm numbness. He called the clinic to talk to them about what he should do and they sent him to the emergency room. He has been under a lot of stress lately. Also has been climbing in and out of the warm truck into the cold air which he thinks is bothering his asthma. Onset: Gradual Duration: Day(s): (Pain for the last few days) Location: Reports: Chest Associated Symptoms: Reports: Malaise. Denies: Fever/Chills, Headaches, Loss of Appetite Chest Pain Score (Numeric/FACES): 3 - Related Data Allergies Allergy/AdvReac Type Severity Reaction Status Date / Time No Known Allergies Allergy Verified 01/23/21 09:47 Home Meds: Home Meds Albuterol [Proventil Neb Soln] 0.63 mg NEB Q2H PRN #25 neb 05/13/13 [Rx] Albuterol/Ipratropium [DuoNeb 3.0-0.5 MG/3 ML] 3 ml NEB QID PRN #20 neb 05/13/13 [Rx] Albuterol Sulfate [Proair Hfa] 8.5 gm IH Q4H PRN #1 hfa.aer.ad 01/19/20 [Rx] Fluticasone/Vilanterol [Breo Ellipta 100-25 MCG Inhalation Kit] 200 each IH DAILY 01/19/20 [History] Past Medical History HEENT History: Reports: Allergic Rhinitis Cardiovascular History: Reports: Angina, Syncope Respiratory History: Reports: Asthma Gastrointestinal History: Reports: GERD Musculoskeletal History: Reports: Fracture Other Musculoskeletal History: leg,arm.collar bone, ankle skull fx Neurological History: Reports: Concussion, Head Trauma Endocrine/Metabolic History: Reports: Obesity/BMI 30+ Oncologic (Cancer) History: Reports: Other (See Below) Other Oncologic History: testicular - Infectious Disease History Infectious Disease History: Reports: Chicken Pox, Novel Coronavirus - Past Surgical History Male Surgical History: Reports: Other (See Below) Other Male Surgeries/Procedures: testicular cancer with radiation seeds Social & Family History - Family History Other HEENT Family History: No family history of sialoadenitis - Tobacco Use Tobacco Use Status *Q: Never Tobacco User - Caffeine Use Caffeine Use: Reports: Coffee, Soda - Recreational Drug Use Recreational Drug Type: Reports: Marijuana/Hashish - Living Situation & Occupation Living situation: Reports: with Significant Other Occupation: Employed (lives in [place] with SO) ED ROS GENERAL - Review of Systems Review Of Systems: See Below Constitutional: Reports: Malaise. Denies: Fever, Chills HEENT: Reports: No Symptoms Respiratory: Reports: Shortness of Breath, Wheezing, Cough Cardiovascular: Reports: Chest Pain GI/Abdominal: Reports: No Symptoms : Reports: No Symptoms Skin: Reports: No Symptoms Neurological: Reports: Paresthesia (Left arm goes numb occasionally) Psychiatric: Reports: Anxiety ED EXAM, GENERAL - Physical Exam Exam: See Below Exam Limited By: No Limitations General Appearance: Alert, No Apparent Distress Eye Exam: Bilateral Eye: Normal Inspection Head: Atraumatic Neck: Supple, Non-Tender Respiratory/Chest: Wheezing (Diffuse expiratory wheezing is heard but underlying good air movement, O2 sats 98% and respirations 20 and nonlabored) Cardiovascular: Normal Peripheral Pulses, Regular Rate, Rhythm GI/Abdominal: Non-Tender Extremities: Normal Inspection Neurological: Alert, Oriented Psychiatric: Normal Affect, Normal Mood Skin Exam: Warm, Dry Course - Vital Signs Last Recorded V/S: Last Vital Signs Temp 97.7 F 01/23/21 09:39 Pulse 102 H 01/23/21 09:39 Resp 20 01/23/21 09:39 BP 118/76 01/23/21 09:39 Pulse Ox 98 01/23/21 09:39 - Orders/Labs/Meds Meds: Medications Discontinued Medications Generic Name Dose Route Start Last Admin Trade Name Freq PRN Reason Stop Dose Admin Albuterol/Ipratropium 3 ml 01/23/21 09:46 01/23/21 09:53 Albuterol/Ipratropium 3.0-0.5 Mg/3 Ml Neb Soln NEB 01/23/21 09:47 3 ml ONETIME ONE Administration - Re-Assessments/Exams Free Text/Narrative Re-Assessment/Exam: 01/23/21 15:01 Patient was given a DuoNeb and his symptoms resolved, lungs are now clear. I restarted prednisone 60 mg a day for just 5 consecutive days without taper. I think he needs to recheck with his primary provider to discuss any other long- term treatment options for his asthma. I strongly encouraged him to get a Covid vaccine but he refused, commenting "don't you watch TV".? Departure - Departure Time of Disposition: 10:45 Disposition: Home, Self-Care 01 Clinical Impression: Asthma exacerbation Qualifiers: Asthma severity: moderate Asthma persistence: unspecified Qualified Code(s): J45.901 - Unspecified asthma with (acute) exacerbation - Discharge Information Instructions: Asthma, Adult Referrals: PCP,Unknown [Primary Care Provider] - Forms: ED Department Discharge Care Plan Goals: Continue your current medications, and take 6 pills of prednisone daily for 5 consecutive days. Consider talking to your primary doctor about further evaluation of the numbness in your arm, and considerations on changes in treating your asthma as well. Sepsis Event Note (ED) - Evaluation Sepsis Screening Result: No Definite Risk - Focused Exam Vital Signs: Vital Signs Temp Pulse Resp BP Pulse Ox 01/23/21 09:39 97.7 F 102 H 20 118/76 98
== END 2021-01-23 10:45 | disposition home or self-care (01) ==
LOC: JP.ED 09:30
DX: J45.901 Unspecified asthma with (acute) exacerbation (principal); E66.9 Obesity, unspecified; Z68.36 Body mass index [BMI] 36.0-36.9, adult; Z79.899 Other long term (current) drug therapy
CPT/HCPCS: 94640; 99284-25; J7620-GY

== ENCOUNTER 2021-02-11 05:47 | Emergency (ER) | payer MEDICAID ==
[2021-02-11] MEDS ORDERED: Albuterol/Ipratropium 3.0-0.5 MG/3 ML Neb Soln ONE (05:54)
[2021-02-11] MEDS ORDERED: Albuterol/Ipratropium 3.0-0.5 MG/3 ML Neb Soln NEB ONE (05:54)
[2021-02-11] MEDS ORDERED: methylPREDNISolone Sodium Succinate 125 MG/2 ML SDV ONE (06:01)
[2021-02-11] MEDS ORDERED: methylPREDNISolone Sodium Succinate 125 MG/2 ML SDV IVPUSH ONE (06:05)
[2021-02-11] MEDS ORDERED: Albuterol 0.083% 2.5 MG/3 ML Neb Soln NEB ONE (06:14)
--- NOTE | 2021-02-11 06:14 | EDM.PDOC ---
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 He did not bring his inhaler from home and he usually uses it on a daily basis. He also has been out of his budesonide for the past 3 days. He arrived to the emergency room very short of breath, O2 saturations around 90%, significant wheezing and increased respiratory rate. He was in mild to moderate distress. His color was pasty. No fevers or chills. Onset: Gradual Duration: Hour(s): (Asthma worsened significantly over the past 1 to 2 hours) Associated Symptoms: Reports: Cough, Malaise, Shortness of Breath, Weakness. Denies: Chest Pain, Fever/Chills, Headaches - Related Data Allergies Allergy/AdvReac Type Severity Reaction Status Date / Time No Known Allergies Allergy Verified 02/11/21 06:12 Home Meds: Home Meds Albuterol [Proventil Neb Soln] 0.63 mg NEB Q2H PRN #25 neb 05/13/13 [Rx] Albuterol/Ipratropium [DuoNeb 3.0-0.5 MG/3 ML] 3 ml NEB QID PRN #20 neb 05/13/13 [Rx] Albuterol Sulfate [Proair Hfa] 8.5 gm IH Q4H PRN #1 hfa.aer.ad 01/19/20 [Rx] Fluticasone/Vilanterol [Breo Ellipta 100-25 MCG Inhalation Kit] 200 each IH DAILY 01/19/20 [History] Past Medical History HEENT History: Reports: Allergic Rhinitis Cardiovascular History: Reports: Angina, Syncope Respiratory History: Reports: Asthma Gastrointestinal History: Reports: GERD Musculoskeletal History: Reports: Fracture Other Musculoskeletal History: leg,arm.collar bone, ankle skull fx Neurological History: Reports: Concussion, Head Trauma Endocrine/Metabolic History: Reports: Obesity/BMI 30+ Oncologic (Cancer) History: Reports: Other (See Below) Other Oncologic History: testicular - Infectious Disease History Infectious Disease History: Reports: Chicken Pox, Novel Coronavirus - Past Surgical History Male Surgical History: Reports: Other (See Below) Other Male Surgeries/Procedures: testicular cancer with radiation seeds Social & Family History - Family History Other HEENT Family History: No family history of sialoadenitis - Tobacco Use Tobacco Use Status *Q: Never Tobacco User - Caffeine Use Caffeine Use: Reports: Soda - Recreational Drug Use Recreational Drug Use: Yes Recreational Drug Type: Reports: Marijuana/Hashish - Living Situation & Occupation Living situation: Reports: with Significant Other Occupation: Employed (lives in [place] with SO) ED ROS GENERAL - Review of Systems Review Of Systems: See Below Constitutional: Reports: Malaise. Denies: Fever, Chills HEENT: Denies: Throat Pain Respiratory: Reports: Shortness of Breath, Wheezing, Cough. Denies: Sputum Cardiovascular: Denies: Chest Pain, Palpitations GI/Abdominal: Denies: Nausea, Vomiting Skin: Reports: Pallor Neurological: Reports: No Symptoms ED EXAM, GENERAL - Physical Exam Exam: See Below Exam Limited By: No Limitations General Appearance: Alert, Moderate Distress Eye Exam: Bilateral Eye: Normal Inspection Head: Atraumatic Respiratory/Chest: Respiratory Distress, Wheezing (Diffuse expiratory wheezing bilaterally, some inspiratory wheezing as well. Overall decreased breath sounds) Cardiovascular: Regular Rate, Rhythm. No: Tachycardia Extremities: No Pedal Edema Neurological: Alert, Oriented, Normal Cognition Psychiatric: Anxious Skin Exam: Warm, Dry, Cool, Pallor Course - Vital Signs Last Recorded V/S: Last Vital Signs Temp 96.1 F L 02/11/21 06:10 Pulse 96 02/11/21 06:10 Resp 24 H 02/11/21 06:10 BP 137/93 H 02/11/21 06:10 Pulse Ox 96 02/11/21 06:10 - Orders/Labs/Meds Meds: Medications Discontinued Medications Generic Name Dose Route Start Last Admin Trade Name Freq PRN Reason Stop Dose Admin Albuterol 2.5 mg 02/11/21 06:14 02/11/21 06:19 Albuterol 0.083% 2.5 Mg/3 Ml Neb Soln NEB 02/11/21 06:15 2.5 mg ONETIME ONE Administration Albuterol/Ipratropium 3 ml 02/11/21 05:54 02/11/21 06:05 Albuterol/Ipratropium 3.0-0.5 Mg/3 Ml Neb Soln NEB 02/11/21 05:55 3 ml ONETIME ONE Administration Albuterol/Ipratropium Confirm 02/11/21 05:54 Albuterol/Ipratropium 3.0-0.5 Mg/3 Ml Neb Soln Administered 02/11/21 05:55 Dose 3 ml .ROUTE .STK-MED ONE Methylprednisolone Sodium Succinate 125 mg 02/11/21 06:05 02/11/21 06:10 Methylprednisolone Sodium Succinate 125 Mg/2 Ml Sdv IVPUSH 02/11/21 06:06 125 mg ONETIME ONE Administration Methylprednisolone Sodium Succinate Confirm 02/11/21 06:01 Methylprednisolone Sodium Succinate 125 Mg/2 Ml Sdv Administered 02/11/21 06:02 Dose 125 mg .ROUTE .STK-MED ONE - Re-Assessments/Exams Free Text/Narrative Re-Assessment/Exam: 02/11/21 06:26 Patient was given a DuoNeb and an IV was started and he was given 125 mg of Solu-Medrol. He had significant objective improvement with markedly less wheezing and O2 saturations now in the upper 90s on room air. He was talking in full sentences fairly comfortably, he still had fairly significant wheezing on exam however. He was then given a second nebulizer of just albuterol and he will be discharged on a Medrol Dosepak as well as a new albuterol inhaler. He will return if needed. Departure - Departure Time of Disposition: 06:41 Disposition: Home, Self-Care 01 Clinical Impression: Asthma exacerbation Qualifiers: Asthma severity: moderate Asthma persistence: unspecified Qualified Code(s): J45.901 - Unspecified asthma with (acute) exacerbation - Discharge Information Instructions: Asthma, Adult Referrals: PCP,None [Primary Care Provider] - Forms: ED Department Discharge Care Plan Goals: Take Medrol Dosepak as prescribed for the next several days, use 2 puffs of your inhaler as needed to get through the next couple of days and reinitiate your budesonide inhaler as soon as possible. Return anytime if worsening despite treatment. Sepsis Event Note (ED) - Focused Exam Vital Signs: Vital Signs Temp Pulse Resp BP Pulse Ox 02/11/21 06:10 96.1 F L 96 24 H 137/93 H 96
== END 2021-02-11 06:42 | disposition home or self-care (01) ==
LOC: JP.ED 05:47
DX: J45.901 Unspecified asthma with (acute) exacerbation (principal); E66.9 Obesity, unspecified; Z68.36 Body mass index [BMI] 36.0-36.9, adult; Z86.16 Personal history of COVID-19; Z79.899 Other long term (current) drug therapy
CPT/HCPCS: 94640; 96374; 99284; J2930; J7620-GY

== ENCOUNTER 2021-05-06 05:03 | Emergency (ER) | payer MEDICAID ==
[2021-05-06] MEDS ORDERED: Albuterol/Ipratropium 3.0-0.5 MG/3 ML Neb Soln NEB ONE (05:10)
[2021-05-06] MEDS ORDERED: methylPREDNISolone Sodium Succinate 125 MG/2 ML SDV IM ONE (05:10)
== END 2021-05-06 05:57 | disposition home or self-care (01) ==
LOC: JP.ED 05:03
DX: J45.41 Moderate persistent asthma with (acute) exacerbation (principal); E66.9 Obesity, unspecified; Z68.36 Body mass index [BMI] 36.0-36.9, adult
CPT/HCPCS: 94640; 96372; 99283; 99284-25; J2930; J7620

== ENCOUNTER 2021-06-25 00:48 | Emergency (ER) | payer MEDICAID ==
[2021-06-25] MEDS ORDERED: Albuterol/Ipratropium 3.0-0.5 MG/3 ML Neb Soln NEB ONE (00:52)
[2021-06-25] MEDS ORDERED: methylPREDNISolone Sodium Succinate 125 MG/2 ML SDV IM ONE (00:52)
== END 2021-06-25 01:35 | disposition home or self-care (01) ==
LOC: JP.ED 00:48
DX: J45.41 Moderate persistent asthma with (acute) exacerbation (principal); E66.9 Obesity, unspecified; Z68.41 Body mass index [BMI] 40.0-44.9, adult; Z72.0 Tobacco use
CPT/HCPCS: 94640; 96372; 99284; 99284-25; J2930; J7620

== ENCOUNTER 2021-08-18 22:15 | Emergency (ER) | payer MEDICAID ==
[2021-08-18] MEDS ORDERED: Sodium Chloride 0.9% 10 ML Syringe FLUSH PRN (22:41)
[2021-08-18] MEDS ORDERED: methylPREDNISolone Sodium Succinate 125 MG/2 ML SDV IVPUSH ONE (22:41)
[2021-08-18] MEDS ORDERED: Sodium Chloride 0.9% 1,000 ML IV SCH (22:45)
[2021-08-18] MEDS ORDERED: Albuterol 0.083% 2.5 MG/3 ML Neb Soln NEB ONE (23:18)
[2021-08-18 23:26] LABS: ESTIMATED GFR 90 mL/min (>60)
== END 2021-08-19 00:30 | disposition home or self-care (01) ==
LOC: JP.ED 22:15
DX: J45.901 Unspecified asthma with (acute) exacerbation (principal); E66.9 Obesity, unspecified; Z68.37 Body mass index [BMI] 37.0-37.9, adult; Z79.899 Other long term (current) drug therapy; Z86.16 Personal history of COVID-19
CPT/HCPCS: 36415; 80053; 85025; 94640; 96361; 96374; 99285; J2930; J7030

== ENCOUNTER 2021-11-30 03:04 | Emergency (ER) | payer MEDICAID ==
[2021-11-30] MEDS ORDERED: methylPREDNISolone Sodium Succinate 125 MG/2 ML SDV IVPUSH ONE (03:17)
[2021-11-30] MEDS ORDERED: Albuterol/Ipratropium 3.0-0.5 MG/3 ML Neb Soln NEB ONE (03:17)
[2021-11-30] MEDS ORDERED: Sodium Chloride 0.9% 10 ML Syringe FLUSH PRN (03:17)
== END 2021-11-30 04:01 | disposition home or self-care (01) ==
LOC: JP.ED 03:04
DX: J45.901 Unspecified asthma with (acute) exacerbation (principal); K21.9 Gastro-esophageal reflux disease without esophagitis
CPT/HCPCS: 94640; 96374; 99284; J2930; J3490; J7620

== ENCOUNTER 2022-06-09 23:44 | Emergency (ER) | payer MEDICAID ==
[2022-06-09] MEDS ORDERED: methylPREDNISolone Sodium Succinate 125 MG/2 ML SDV IM ONE (23:59)
== END 2022-06-10 00:18 | disposition home or self-care (01) ==
LOC: JP.ED 23:44
DX: J45.41 Moderate persistent asthma with (acute) exacerbation (principal); E66.9 Obesity, unspecified; Z86.16 Personal history of COVID-19; Z79.899 Other long term (current) drug therapy
CPT/HCPCS: 96372; 99283; 99284; J2930

== ENCOUNTER 2022-06-10 01:42 | Emergency (ER) | payer MEDICAID ==
[2022-06-10] MEDS ORDERED: Lactated Ringers 1,000 ML IV ONE (01:50)
[2022-06-10] MEDS ORDERED: Sodium Chloride 0.9% 10 ML Syringe FLUSH PRN (01:50)
[2022-06-10] MEDS ORDERED: Albuterol/Ipratropium 3.0-0.5 MG/3 ML Neb Soln NEB ONE ×2 (01:52→09:08)
[2022-06-10] MEDS ORDERED: Magnesium Sulfate/Water 2 GM in Premix Bag 1 BAG IV ONE (01:52)
[2022-06-10] MEDS ORDERED: Levalbuterol HCl 1.25 MG/3 ML Neb NEB ONE (01:56)
[2022-06-10 02:14] LABS: ESTIMATED GFR 100 mL/min (>60)
== END 2022-06-10 10:15 | disposition home or self-care (01) ==
LOC: JP.ED 01:42
DX: J45.901 Unspecified asthma with (acute) exacerbation (principal); E66.9 Obesity, unspecified; Z68.36 Body mass index [BMI] 36.0-36.9, adult; Z86.16 Personal history of COVID-19
CPT/HCPCS: 36415; 71046; 80053; 83605; 83735; 85025; 94640; 96374; 99285; J3475; J3490; J7120; 99283; J7620